=== PATIENT | male | born 1940 | race Caucasian/White ===

== ENCOUNTER 2018-01-16 14:39 | Inpatient (IN) | payer MEDICARE, OTHER ==
[~2018-01-16] VITALS: Ht 188 cm; Wt 86.9 kg
[2018-01-16] MEDS ORDERED: ETOMIDATE (2MG/ML) 20ML VIAL IV ONE (14:41)
[2018-01-16] MEDS ORDERED: SUCCINYLCHOLINE CHLORIDE 20 MG/ML 10ML VIAL IV ONE (14:41)
[2018-01-16] MEDS ORDERED: MIDAZOLAM DRIP 50 mg/50mL 50 ML IV ONE (14:43)
[2018-01-16] MEDS: MIDAZOLAM DRIP 50 mg/50mL 50 ML IV SCH (14:48)
[2018-01-16] MEDS ORDERED: NOREPINEPHRINE 16 MG/500ML KIT 500 ML IV ONE (15:13)
[2018-01-16] MEDS: NOREPINEPHRINE 16 MG/500ML KIT 500 ML IV SCH (15:29)
[2018-01-16] MEDS ORDERED: SODIUM BICARBONATE 8.4 % INJ 50ML VIAL IV ONE (15:45)
[2018-01-16] MEDS ORDERED: SODIUM CHLORIDE 0.9% 1,000 ML IV ONE (15:45)
[2018-01-16] MEDS ORDERED: SODIUM CHLORIDE 0.9% 1,000 ML IV SCH (17:15)
[2018-01-16] MEDS ORDERED: cefTRIAXone 1GM/10ml IVPUSH 10 ML IV ONE ×2 (17:15→17:45)
[2018-01-16] MEDS ORDERED: AZITHROMYCIN 500MG/ 250ML 250 ML IV ONE (17:45)
[2018-01-16 18:32] LABS: Basophils # (auto) 0 uL; Eosinophils # (auto) 0 uL; Hematocrit 39.8 % (41.0-53.0); Hemoglobin 13.4 g/dL (13.5-17.5); Lymphocytes # (auto) 0.7 uL; Lymphocytes % (auto) 3.1 % (10.0-50.0); Mean Corpuscular Hemoglobin 30.6 pg (28.0-32.0); Mean Corpuscular Hgb Conc. 33.6 g/dL (32.0-36.0); Mean Corpuscular Volume 91.1 fL (80.0-100.0); Monocytes # (auto) 2.2 uL; Monocytes % (auto) 9.8 % (0.0-12.0); Neutrophils % (auto) 87.1 % (37.0-80.0); Platelet Count (auto) 221 10^3/uL (140-450); Red Blood Cells 4.37 10^6/uL (4.5-5.90); Red Cell Distribution Width 15.8 % (11.8-14.3); White Blood Cell 22.9 10^3/uL (4.4-10.8)
[2018-01-16 18:56] LABS: Alanine Aminotransferase 48 U/L (16-61); Alkaline Phosphatase 55 U/L (45-117); Anion Gap 11 (5-15); Aspartate Aminotransferase 184 U/L (15-37); BUN/Creatinine Ratio 16.9; Bilirubin, Total 0.9 mg/dL (0.2-1.0); Blood Urea Nitrogen 39 mg/dL (7-18); Calcium 8.2 mg/dL (8.5-10.1); Carbon Dioxide 24 mmol/L (21-32); Chloride 101 mmol/L (98-107); GFR African American 35 mL/min; GFR Non-African American 29 mL/min; Glucose 111 mg/dL (74-106); Potassium 4.6 mmol/L (3.5-5.1); Sodium 136 mmol/L (136-145); Total Protein 6.2 g/dL (6.4-8.2)
[2018-01-16] MEDS ORDERED: ALBUTEROL SULF 2.5 MG/0.5ML(0.5%) NEB SOLN NEB PRN (19:15)
[2018-01-16] MEDS ORDERED: NITROGLYCERIN 0.4 MG SL TAB SL PRN (19:15)
[2018-01-16] MEDS ORDERED: MORPHINE SULFATE 4 MG/ML SYR/VIAL IV PRN ×2 (19:15)
[2018-01-16] MEDS ORDERED: LORazepam 2MG/ML-1ML VIAL IV PRN (19:15)
[2018-01-16] MEDS ORDERED: PROMETHAZINE HCL 25 MG/ML 1ML IV PRN (19:15)
[2018-01-16] MEDS ORDERED: PIPERACILLIN-TAZOB 3.375GM 100 ML IV ONE (19:15)
[2018-01-16] MEDS ORDERED: ENOXAPARIN SOD 60 MG/0.6 ML SYRINGE SC ONE (19:30)
[2018-01-16] MEDS ORDERED: PIPERACILLIN-TAZOB 2.25GM 50 ML IV ONE (19:45)
[2018-01-16 19:49] VITALS: BP 99/68
[2018-01-16] MEDS: SODIUM CHLORIDE 0.9% 1,000 ML IV SCH (20:04)
[2018-01-16 21:21] VITALS: BP 100/68
[2018-01-16 22:22] LABS: Urine Bacteria FEW /hpf (None Seen); Urine Blood 2+ /uL (Negative); Urine Mucus FEW (None Seen); Urine Specific Gravity 1.023 (1.001-1.035); Urine WBC 10 /hpf (0 - 3)
[2018-01-16 22:33] VITALS: BP 100/65
[2018-01-16] MEDS: LINEZOLID 600MG/300ML 300 ML IV SCH (23:29)
[2018-01-17] VITALS (42 sets, daily range): BP systolic 98–151; BP diastolic 51–95
[2018-01-17] MEDS: IPRATROPIUM BROM 0.5 MG/2.5ML INH SOL NEB SCH ×4 (00:57→18:30)
[2018-01-17] MEDS: ALBUTEROL SULF 2.5 MG/0.5ML(0.5%) NEB SOLN NEB SCH ×4 (00:57→18:30)
[2018-01-17] MEDS: PIPERACILLIN-TAZOB 2.25GM 50 ML IV SCH ×4 (03:00→21:14)
[2018-01-17 07:15] LABS: Basophils # (auto) 0 uL; Basophils % (auto) 0.1 % (0.0-2.0); Eosinophils # (auto) 0 uL; Hematocrit 38.8 % (41.0-53.0); Mean Corpuscular Hemoglobin 31.1 pg (28.0-32.0); Mean Corpuscular Hgb Conc. 33.4 g/dL (32.0-36.0); Mean Corpuscular Volume 93.1 fL (80.0-100.0); Monocytes # (auto) 1.8 uL; Monocytes % (auto) 10.5 % (0.0-12.0); Neutrophils # (auto) 14.2 uL; Neutrophils % (auto) 83.4 % (37.0-80.0); Nucleated Red Blood Cells % 0.1 %; Platelet Count (auto) 188 10^3/uL (140-450); Red Blood Cells 4.17 10^6/uL (4.5-5.90); Red Cell Distribution Width 15.7 % (11.8-14.3); White Blood Cell 17.1 10^3/uL (4.4-10.8)
[2018-01-17] MEDS: SODIUM CHLORIDE 0.9% 1,000 ML IV SCH ×3 (07:18→20:19)
[2018-01-17 08:15] LABS: Albumin 2.8 g/dL (3.4-5.0); BUN/Creatinine Ratio 18.7; Bilirubin, Total 0.6 mg/dL (0.2-1.0); Calcium 8.2 mg/dL (8.5-10.1); Potassium 4.9 mmol/L (3.5-5.1); Total Protein 6.3 g/dL (6.4-8.2)
[2018-01-17] MEDS ORDERED: ENOXAPARIN SOD 40 MG/0.4 ML SYRINGE SC SCH (10:00)
[2018-01-17] MEDS: LINEZOLID 600MG/300ML 300 ML IV SCH ×2 (10:00→22:58)
[2018-01-17] MEDS ORDERED: ENOXAPARIN SOD 30 MG/0.3 ML SYRINGE SC SCH (10:00)
[2018-01-17] MEDS: ENOXAPARIN SOD 60 MG/0.6 ML SYRINGE SC SCH (13:47)
[2018-01-17] MEDS: AZITHROMYCIN 500MG/ 250ML 250 ML IV SCH (14:28)
[2018-01-17] MEDS ORDERED: PANTOPRAZOLE 40 MG/10 ML VIAL IV ONE (15:00)
[2018-01-17] MEDS: MIDAZOLAM DRIP 50 mg/50mL 50 ML IV SCH ×2 (15:37→21:02)
[2018-01-17] MEDS: NOREPINEPHRINE 16 MG/500ML KIT 500 ML IV SCH (15:45)
[2018-01-18] VITALS (104 sets, daily range): BP systolic 92–171; BP diastolic 51–101
[2018-01-18] MEDS: IPRATROPIUM BROM 0.5 MG/2.5ML INH SOL NEB SCH ×4 (00:27→18:31)
[2018-01-18] MEDS: ALBUTEROL SULF 2.5 MG/0.5ML(0.5%) NEB SOLN NEB SCH ×4 (00:28→18:31)
[2018-01-18] MEDS: MIDAZOLAM DRIP 50 mg/50mL 50 ML IV SCH ×4 (01:49→21:26)
[2018-01-18] MEDS: PIPERACILLIN-TAZOB 2.25GM 50 ML IV SCH ×2 (03:24→09:00)
[2018-01-18] MEDS: SODIUM CHLORIDE 0.9% 1,000 ML IV SCH ×3 (03:28→19:04)
[2018-01-18 04:25] LABS: Basophils # (auto) 0 uL; Basophils % (auto) 0.3 % (0.0-2.0); Eosinophils # (auto) 0 uL; Hematocrit 35.5 % (41.0-53.0); Lymphocytes # (auto) 0.9 uL; Lymphocytes % (auto) 8.9 % (10.0-50.0); Mean Corpuscular Hemoglobin 31.3 pg (28.0-32.0); Mean Corpuscular Hgb Conc. 33.7 g/dL (32.0-36.0); Monocytes # (auto) 1.3 uL; Monocytes % (auto) 12.8 % (0.0-12.0); Neutrophils # (auto) 7.9 uL; Platelet Count (auto) 155 10^3/uL (140-450); Red Blood Cells 3.82 10^6/uL (4.5-5.90); Red Cell Distribution Width 16.1 % (11.8-14.3); White Blood Cell 10.1 10^3/uL (4.4-10.8)
[2018-01-18 04:48] LABS: Albumin 2.5 g/dL (3.4-5.0); BUN/Creatinine Ratio 26.1; Bilirubin, Total 0.5 mg/dL (0.2-1.0); Calcium 8.5 mg/dL (8.5-10.1); Potassium 4.2 mmol/L (3.5-5.1); Total Protein 5.7 g/dL (6.4-8.2)
[2018-01-18] MEDS: AZITHROMYCIN 500MG/ 250ML 250 ML IV SCH (09:44)
[2018-01-18] MEDS: LINEZOLID 600MG/300ML 300 ML IV SCH ×2 (09:44→23:38)
[2018-01-18] MEDS: ENOXAPARIN SOD 60 MG/0.6 ML SYRINGE SC SCH (09:44)
[2018-01-18] MEDS: PANTOPRAZOLE 40 MG/10 ML VIAL IV SCH (09:44)
[2018-01-18] MEDS: NOREPINEPHRINE 16 MG/500ML KIT 500 ML IV SCH (11:47)
[2018-01-18] MEDS: PIPERACILLIN-TAZOB 3.375GM 100 ML IV SCH ×2 (14:45→21:25)
[2018-01-19] VITALS (105 sets, daily range): BP systolic 113–182; BP diastolic 53–113
[2018-01-19] MEDS: ALBUTEROL SULF 2.5 MG/0.5ML(0.5%) NEB SOLN NEB SCH ×4 (00:25→18:49)
[2018-01-19] MEDS: IPRATROPIUM BROM 0.5 MG/2.5ML INH SOL NEB SCH ×4 (00:25→18:49)
[2018-01-19] MEDS: PIPERACILLIN-TAZOB 3.375GM 100 ML IV SCH ×4 (02:58→21:34)
[2018-01-19] MEDS: SODIUM CHLORIDE 0.9% 1,000 ML IV SCH ×3 (03:04→21:34)
[2018-01-19 04:21] LABS: Basophils # (auto) 0 uL; Basophils % (auto) 0.2 % (0.0-2.0); Eosinophils # (auto) 0 uL; Eosinophils % (auto) 0.4 % (0.0-7.0); Hematocrit 32.1 % (41.0-53.0); Hemoglobin 11.1 g/dL (13.5-17.5); Lymphocytes % (auto) 12.4 % (10.0-50.0); Mean Corpuscular Hemoglobin 31.6 pg (28.0-32.0); Mean Corpuscular Hgb Conc. 34.5 g/dL (32.0-36.0); Mean Corpuscular Volume 91.5 fL (80.0-100.0); Monocytes # (auto) 0.9 uL; Monocytes % (auto) 10.7 % (0.0-12.0); Neutrophils # (auto) 6.4 uL; Neutrophils % (auto) 76.3 % (37.0-80.0); Platelet Count (auto) 171 10^3/uL (140-450); Red Cell Distribution Width 15.3 % (11.8-14.3); White Blood Cell 8.4 10^3/uL (4.4-10.8)
[2018-01-19 04:28] LABS: Albumin 2.2 g/dL (3.4-5.0); Calcium 8.2 mg/dL (8.5-10.1); Potassium 4.1 mmol/L (3.5-5.1)
[2018-01-19 04:30] LABS: Bilirubin, Total 0.8 mg/dL (0.2-1.0); Total Protein 5.6 g/dL (6.4-8.2)
[2018-01-19] MEDS: NOREPINEPHRINE 8 MG/250ML KIT 250 ML IV SCH (07:15)
[2018-01-19] MEDS ORDERED: SODIUM CHLORIDE 0.9% 1,000 ML IV ONE (08:30)
[2018-01-19 08:51] LABS: Hepatitis B Surface Antibody Negative
[2018-01-19 09:51] LABS: Hepatitis B Surface Antigen Negative (Negative)
[2018-01-19] MEDS: PANTOPRAZOLE 40 MG/10 ML VIAL IV SCH (10:05)
[2018-01-19] MEDS: ENOXAPARIN SOD 40 MG/0.4 ML SYRINGE SC SCH (10:06)
[2018-01-19] MEDS: AZITHROMYCIN 500MG/ 250ML 250 ML IV SCH (10:07)
[2018-01-19] MEDS ORDERED: VANCOMYCIN PER PHARMACY 0 MG IV SCH (11:15)
[2018-01-19] MEDS ORDERED: FUROSEMIDE 20 MG/2 ML VIAL IV ONE (12:00)
[2018-01-19] MEDS: hydrALAZINE HCL 20 MG/ML VL IV PRN (12:23)
[2018-01-19] MEDS: VANCOMYCIN 1GM/250ML 250 ML IV SCH (12:35)
[2018-01-20] VITALS (103 sets, daily range): BP systolic 107–189; BP diastolic 51–119
[2018-01-20] MEDS: VANCOMYCIN 1GM/250ML 250 ML IV SCH ×2 (00:38→12:36)
[2018-01-20] MEDS: ALBUTEROL SULF 2.5 MG/0.5ML(0.5%) NEB SOLN NEB SCH ×4 (00:44→18:44)
[2018-01-20] MEDS: IPRATROPIUM BROM 0.5 MG/2.5ML INH SOL NEB SCH ×4 (00:44→18:44)
[2018-01-20] MEDS: MIDAZOLAM DRIP 50 mg/50mL 50 ML IV SCH ×2 (02:15→07:24)
[2018-01-20] MEDS: SODIUM CHLORIDE 0.9% 1,000 ML IV SCH ×4 (03:04→21:16)
[2018-01-20 03:46] LABS: Basophils # (auto) 0 uL; Basophils % (auto) 0.5 % (0.0-2.0); Eosinophils # (auto) 0.1 uL; Eosinophils % (auto) 0.7 % (0.0-7.0); Hematocrit 33.3 % (41.0-53.0); Hemoglobin 11.3 g/dL (13.5-17.5); Lymphocytes # (auto) 1.1 uL; Lymphocytes % (auto) 14.6 % (10.0-50.0); Mean Corpuscular Hemoglobin 31.1 pg (28.0-32.0); Mean Corpuscular Hgb Conc. 33.8 g/dL (32.0-36.0); Mean Corpuscular Volume 92.2 fL (80.0-100.0); Monocytes # (auto) 0.9 uL; Monocytes % (auto) 12.3 % (0.0-12.0); Neutrophils # (auto) 5.5 uL; Neutrophils % (auto) 71.9 % (37.0-80.0); Platelet Count (auto) 209 10^3/uL (140-450); Red Blood Cells 3.62 10^6/uL (4.5-5.90); Red Cell Distribution Width 15.4 % (11.8-14.3); White Blood Cell 7.6 10^3/uL (4.4-10.8)
[2018-01-20] MEDS: PIPERACILLIN-TAZOB 3.375GM 100 ML IV SCH ×2 (03:52→08:45)
[2018-01-20 04:08] LABS: Albumin 2.4 g/dL (3.4-5.0); BUN/Creatinine Ratio 21.4; Bilirubin, Total 0.7 mg/dL (0.2-1.0); Calcium 8.5 mg/dL (8.5-10.1); Potassium 3.9 mmol/L (3.5-5.1); Total Protein 5.7 g/dL (6.4-8.2)
[2018-01-20] MEDS: NOREPINEPHRINE 8 MG/250ML KIT 250 ML IV SCH (07:15)
[2018-01-20] MEDS: PANTOPRAZOLE 40 MG/10 ML VIAL IV SCH (10:43)
[2018-01-20] MEDS: ENOXAPARIN SOD 40 MG/0.4 ML SYRINGE SC SCH (10:43)
[2018-01-20] MEDS: CLINDAMYCIN 600MG IV 50 ML IV SCH ×2 (10:48→16:51)
[2018-01-20] MEDS: hydrALAZINE HCL 20 MG/ML VL IV PRN ×2 (10:55→23:54)
[2018-01-21] VITALS (107 sets, daily range): BP systolic 94–175; BP diastolic 45–107
[2018-01-21] MEDS: VANCOMYCIN 1GM/250ML 250 ML IV SCH (00:16)
[2018-01-21] MEDS: IPRATROPIUM BROM 0.5 MG/2.5ML INH SOL NEB SCH ×4 (00:26→18:09)
[2018-01-21] MEDS: ALBUTEROL SULF 2.5 MG/0.5ML(0.5%) NEB SOLN NEB SCH ×4 (00:26→18:09)
[2018-01-21] MEDS: MIDAZOLAM DRIP 50 mg/50mL 50 ML IV SCH ×3 (01:17→14:47)
[2018-01-21] MEDS: CLINDAMYCIN 600MG IV 50 ML IV SCH ×3 (01:26→17:30)
[2018-01-21 03:58] LABS: Basophils # (auto) 0.3 uL; Basophils % (auto) 4.4 % (0.0-2.0); Eosinophils # (auto) 0.1 uL; Eosinophils % (auto) 1.3 % (0.0-7.0); Hematocrit 34.3 % (41.0-53.0); Hemoglobin 11.4 g/dL (13.5-17.5); Lymphocytes # (auto) 0.9 uL; Lymphocytes % (auto) 14.2 % (10.0-50.0); Mean Corpuscular Hemoglobin 31.2 pg (28.0-32.0); Mean Corpuscular Hgb Conc. 33.2 g/dL (32.0-36.0); Mean Corpuscular Volume 94.1 fL (80.0-100.0); Monocytes # (auto) 0.9 uL; Monocytes % (auto) 13.9 % (0.0-12.0); Neutrophils # (auto) 4.4 uL; Neutrophils % (auto) 66.2 % (37.0-80.0); Nucleated Red Blood Cells % 0.1 %; Platelet Count (auto) 241 10^3/uL (140-450); Red Blood Cells 3.64 10^6/uL (4.5-5.90); Red Cell Distribution Width 15.9 % (11.8-14.3); White Blood Cell 6.6 10^3/uL (4.4-10.8)
[2018-01-21 04:11] LABS: Albumin 2.4 g/dL (3.4-5.0); BUN/Creatinine Ratio 28.4; Bilirubin, Total 0.6 mg/dL (0.2-1.0); Calcium 8.8 mg/dL (8.5-10.1); Potassium 3.9 mmol/L (3.5-5.1); Total Protein 5.8 g/dL (6.4-8.2)
[2018-01-21] MEDS: NOREPINEPHRINE 8 MG/250ML KIT 250 ML IV SCH (07:15)
[2018-01-21] MEDS ORDERED: LISI10TA6 PO (09:49)
[2018-01-21] MEDS ORDERED: ARIP15TA6 PO (09:49)
[2018-01-21] MEDS ORDERED: TRAZ50TA2 PO (09:49)
[2018-01-21] MEDS ORDERED: QUET100T38 PO (09:49)
[2018-01-21] MEDS ORDERED: OLAN5TAB26 PO (09:49)
[2018-01-21] MEDS ORDERED: RISP1TAB60 PO (09:49)
[2018-01-21] MEDS ORDERED: DIVA250T61 PO (09:49)
[2018-01-21] MEDS: PANTOPRAZOLE 40 MG/10 ML VIAL IV SCH (10:18)
[2018-01-21] MEDS: ENOXAPARIN SOD 40 MG/0.4 ML SYRINGE SC SCH (10:18)
[2018-01-21] MEDS: SODIUM CHLORIDE 0.9% 1,000 ML IV SCH (10:22)
[2018-01-21] MEDS: hydrALAZINE HCL 20 MG/ML VL IV PRN (12:27)
[2018-01-21] MEDS ORDERED: LEVOFLOXACIN 500MG 100 ML IV ONE (14:00)
[2018-01-21] MEDS ORDERED: LACTULOSE 20Gm/30ML SOLN PO ONE (14:00)
[2018-01-21] MEDS ORDERED: FUROSEMIDE 40 MG/4 ML VIAL IV ONE (14:00)
[2018-01-21] MEDS ORDERED: DOCUSATE ORAL LIQUID 100 MG/10 ML UD GT ONE (14:00)
[2018-01-21] MEDS ORDERED: VALPROIC ACID 250 MG/5 ML ORAL SOLN GT SCH (14:06)
[2018-01-21] MEDS: VALPROIC ACID 250 MG/5 ML ORAL SOLN GT SCH (22:03)
[2018-01-22] VITALS (93 sets, daily range): BP systolic 90–180; BP diastolic 51–120
[2018-01-22] MEDS: MIDAZOLAM DRIP 50 mg/50mL 50 ML IV SCH ×2 (00:04→15:25)
[2018-01-22] MEDS: CLINDAMYCIN 600MG IV 50 ML IV SCH ×3 (01:14→18:25)
[2018-01-22] MEDS: MORPHINE SULFATE 4 MG/ML SYR/VIAL IV PRN (01:15)
[2018-01-22 04:26] LABS: Basophils # (auto) 0 uL; Basophils % (auto) 0.5 % (0.0-2.0); Eosinophils # (auto) 0.1 uL; Eosinophils % (auto) 2.2 % (0.0-7.0); Hematocrit 31.8 % (41.0-53.0); Hemoglobin 10.7 g/dL (13.5-17.5); Lymphocytes # (auto) 1.3 uL; Lymphocytes % (auto) 21.1 % (10.0-50.0); Mean Corpuscular Hemoglobin 31.3 pg (28.0-32.0); Mean Corpuscular Hgb Conc. 33.7 g/dL (32.0-36.0); Mean Corpuscular Volume 92.8 fL (80.0-100.0); Monocytes # (auto) 0.8 uL; Monocytes % (auto) 12.6 % (0.0-12.0); Neutrophils # (auto) 3.9 uL; Neutrophils % (auto) 63.6 % (37.0-80.0); Nucleated Red Blood Cells % 0.1 %; Platelet Count (auto) 250 10^3/uL (140-450); Red Blood Cells 3.42 10^6/uL (4.5-5.90); Red Cell Distribution Width 15.1 % (11.8-14.3); White Blood Cell 6.1 10^3/uL (4.4-10.8)
[2018-01-22 04:41] LABS: Albumin 2.2 g/dL (3.4-5.0); BUN/Creatinine Ratio 27.8; Calcium 8.8 mg/dL (8.5-10.1); Potassium 3.6 mmol/L (3.5-5.1)
[2018-01-22 04:44] LABS: Bilirubin, Total 0.5 mg/dL (0.2-1.0); Total Protein 5.5 g/dL (6.4-8.2)
[2018-01-22] MEDS: ALBUTEROL SULF 2.5 MG/0.5ML(0.5%) NEB SOLN NEB SCH ×5 (06:28→23:12)
[2018-01-22] MEDS: IPRATROPIUM BROM 0.5 MG/2.5ML INH SOL NEB SCH ×5 (06:28→23:12)
[2018-01-22] MEDS: hydrALAZINE HCL 20 MG/ML VL IV PRN ×2 (06:51→15:57)
[2018-01-22] MEDS: ENOXAPARIN SOD 40 MG/0.4 ML SYRINGE SC SCH (11:20)
[2018-01-22] MEDS: VALPROIC ACID 250 MG/5 ML ORAL SOLN GT SCH ×2 (11:20→22:21)
[2018-01-22] MEDS: PANTOPRAZOLE 40 MG/10 ML VIAL IV SCH (11:20)
[2018-01-22] MEDS: LEVOFLOXACIN 500MG 100 ML IV SCH (11:21)
[2018-01-22] MEDS: ENOXAPARIN SOD 80 MG/0.8ML SYRINGE SC SCH (22:21)
[2018-01-23] VITALS (45 sets, daily range): BP systolic 125–178; BP diastolic 72–115
[2018-01-23] MEDS: CLINDAMYCIN 600MG IV 50 ML IV SCH ×3 (01:20→17:38)
[2018-01-23 03:42] LABS: Hematocrit 33.5 % (41.0-53.0); Hemoglobin 11.4 g/dL (13.5-17.5); Mean Corpuscular Hemoglobin 31.2 pg (28.0-32.0); Mean Corpuscular Volume 91.9 fL (80.0-100.0); Platelet Count (auto) 300 10^3/uL (140-450); Red Blood Cells 3.64 10^6/uL (4.5-5.90); Red Cell Distribution Width 15.2 % (11.8-14.3); White Blood Cell 7.8 10^3/uL (4.4-10.8)
[2018-01-23 04:01] LABS: BUN/Creatinine Ratio 28.6; Calcium 9.2 mg/dL (8.5-10.1); Potassium 3.6 mmol/L (3.5-5.1)
[2018-01-23 04:13] LABS: Band Neutrophils % (manual) 0; Basophils % (manual) 0 (0.0-2.0); Blast Cells 0; Eosinophils % (manual) 0 (0-7); Promyelocytes % 0; Reactive Lymphocytes 0
[2018-01-23] MEDS: MORPHINE SULFATE 4 MG/ML SYR/VIAL IV PRN ×2 (04:42→17:40)
[2018-01-23 05:02] LABS: Lymphocytes % (manual) 15 (10.0-50.0); Metamyelocytes % 3; Monocytes % (manual) 11 (0-12); Myelocytes % 2
[2018-01-23] MEDS: IPRATROPIUM BROM 0.5 MG/2.5ML INH SOL NEB SCH ×3 (05:57→19:10)
[2018-01-23] MEDS: ALBUTEROL SULF 2.5 MG/0.5ML(0.5%) NEB SOLN NEB SCH ×3 (05:57→19:10)
[2018-01-23] MEDS: LEVOFLOXACIN 500MG 100 ML IV SCH (09:43)
[2018-01-23] MEDS: VALPROIC ACID 250 MG/5 ML ORAL SOLN GT SCH ×2 (09:43→22:14)
[2018-01-23] MEDS: PANTOPRAZOLE 40 MG/10 ML VIAL IV SCH (09:44)
[2018-01-23] MEDS: FUROSEMIDE 20 MG/2 ML VIAL IV SCH (09:44)
[2018-01-23] MEDS: amLODIPine BESYLATE 5 MG TAB PO SCH (09:44)
[2018-01-23] MEDS: ENOXAPARIN SOD 80 MG/0.8ML SYRINGE SC SCH ×2 (09:45→22:14)
[2018-01-23] MEDS: hydrALAZINE HCL 20 MG/ML VL IV PRN ×2 (11:38→23:47)
[2018-01-23] MEDS ORDERED: POTASSIUM CHL 10% (20 MEQ/15ML) 15ml ORAL SOLN GT ONE (11:45)
[2018-01-23] MEDS ORDERED: FUROSEMIDE 20 MG/2 ML VIAL IV ONE (11:45)
[2018-01-23] MEDS: MIDAZOLAM DRIP 50 mg/50mL 50 ML IV SCH (15:37)
[2018-01-24] VITALS (50 sets, daily range): BP systolic 128–176; BP diastolic 68–118
[2018-01-24] MEDS: ALBUTEROL SULF 2.5 MG/0.5ML(0.5%) NEB SOLN NEB SCH ×4 (00:18→18:33)
[2018-01-24] MEDS: IPRATROPIUM BROM 0.5 MG/2.5ML INH SOL NEB SCH ×4 (00:18→18:33)
[2018-01-24] MEDS: CLINDAMYCIN 600MG IV 50 ML IV SCH ×3 (01:00→16:52)
[2018-01-24 04:08] LABS: Hematocrit 37.5 % (41.0-53.0); Hemoglobin 12.8 g/dL (13.5-17.5); Mean Corpuscular Hemoglobin 31.3 pg (28.0-32.0); Mean Corpuscular Hgb Conc. 34.2 g/dL (32.0-36.0); Mean Corpuscular Volume 91.6 fL (80.0-100.0); Platelet Count (auto) 352 10^3/uL (140-450); Red Blood Cells 4.09 10^6/uL (4.5-5.90)
[2018-01-24 04:09] LABS: Basophils % (manual) 0 (0.0-2.0); Blast Cells 0; Eosinophils % (manual) 0 (0-7); Metamyelocytes % 0; Myelocytes % 0; Promyelocytes % 0; Reactive Lymphocytes 0
[2018-01-24 04:28] LABS: BUN/Creatinine Ratio 30.8; Calcium 9.5 mg/dL (8.5-10.1); Potassium 3.4 mmol/L (3.5-5.1)
[2018-01-24 04:59] LABS: Band Neutrophils % (manual) 2; Lymphocytes % (manual) 18 (10.0-50.0); Monocytes % (manual) 5 (0-12)
[2018-01-24] MEDS: hydrALAZINE HCL 20 MG/ML VL IV PRN (05:35)
[2018-01-24] MEDS: PANTOPRAZOLE 40 MG/10 ML VIAL IV SCH (10:23)
[2018-01-24] MEDS: LEVOFLOXACIN 500MG 100 ML IV SCH (10:23)
[2018-01-24] MEDS: ENOXAPARIN SOD 80 MG/0.8ML SYRINGE SC SCH ×2 (10:24→21:52)
[2018-01-24] MEDS: FUROSEMIDE 20 MG/2 ML VIAL IV SCH (10:24)
[2018-01-24] MEDS: amLODIPine BESYLATE 5 MG TAB PO SCH (10:24)
[2018-01-24] MEDS: VALPROIC ACID 250 MG/5 ML ORAL SOLN GT SCH ×2 (10:25→21:52)
[2018-01-25] VITALS (74 sets, daily range): BP systolic 104–186; BP diastolic 47–141
[2018-01-25] MEDS: ALBUTEROL SULF 2.5 MG/0.5ML(0.5%) NEB SOLN NEB SCH ×4 (00:11→18:37)
[2018-01-25] MEDS: IPRATROPIUM BROM 0.5 MG/2.5ML INH SOL NEB SCH ×4 (00:11→18:37)
[2018-01-25] MEDS: CLINDAMYCIN 600MG IV 50 ML IV SCH ×3 (00:57→17:26)
[2018-01-25] MEDS: MORPHINE SULFATE 4 MG/ML SYR/VIAL IV PRN ×2 (02:55→08:48)
[2018-01-25 06:11] LABS: Basophils # (auto) 0.1 uL; Basophils % (auto) 0.7 % (0.0-2.0); Eosinophils # (auto) 0 uL; Hematocrit 40.1 % (41.0-53.0); Hemoglobin 13.4 g/dL (13.5-17.5); Lymphocytes # (auto) 1.1 uL; Lymphocytes % (auto) 9.8 % (10.0-50.0); Mean Corpuscular Hemoglobin 30.7 pg (28.0-32.0); Mean Corpuscular Hgb Conc. 33.4 g/dL (32.0-36.0); Mean Corpuscular Volume 91.9 fL (80.0-100.0); Monocytes # (auto) 1.2 uL; Monocytes % (auto) 11.2 % (0.0-12.0); Neutrophils # (auto) 8.6 uL; Neutrophils % (auto) 78.3 % (37.0-80.0); Nucleated Red Blood Cells % 0.1 %; Platelet Count (auto) 399 10^3/uL (140-450); Red Blood Cells 4.37 10^6/uL (4.5-5.90); Red Cell Distribution Width 15.2 % (11.8-14.3)
[2018-01-25 06:37] LABS: BUN/Creatinine Ratio 29.8; Calcium 9.7 mg/dL (8.5-10.1); Potassium 3.5 mmol/L (3.5-5.1)
[2018-01-25] MEDS: hydrALAZINE HCL 20 MG/ML VL IV PRN ×2 (08:22→18:25)
[2018-01-25] MEDS ORDERED: METOPROLOL TARTRATE 1MG/1ML-5ML VIAL IV ONE ×2 (08:56→09:00)
[2018-01-25] MEDS ORDERED: METOPROLOL TARTRATE 1MG/1ML-5ML VIAL IV PRN (09:30)
[2018-01-25] MEDS: METOPROLOL TARTRATE 25 MG TAB PO SCH ×2 (10:00→21:37)
[2018-01-25] MEDS: LEVOFLOXACIN 500MG 100 ML IV SCH (10:07)
[2018-01-25] MEDS: VALPROIC ACID 250 MG/5 ML ORAL SOLN GT SCH ×2 (10:07→21:36)
[2018-01-25] MEDS: PANTOPRAZOLE 40 MG/10 ML VIAL IV SCH (10:07)
[2018-01-25] MEDS: FUROSEMIDE 40 MG TAB PO SCH (10:08)
[2018-01-25] MEDS: ENOXAPARIN SOD 80 MG/0.8ML SYRINGE SC SCH ×2 (10:08→21:36)
[2018-01-25] MEDS: amLODIPine BESYLATE 5 MG TAB PO SCH (10:08)
[2018-01-26] VITALS (42 sets, daily range): BP systolic 104–160; BP diastolic 54–112
[2018-01-26] MEDS: IPRATROPIUM BROM 0.5 MG/2.5ML INH SOL NEB SCH ×4 (00:28→18:18)
[2018-01-26] MEDS: ALBUTEROL SULF 2.5 MG/0.5ML(0.5%) NEB SOLN NEB SCH ×4 (00:28→18:18)
[2018-01-26] MEDS: CLINDAMYCIN 600MG IV 50 ML IV SCH ×3 (01:02→16:50)
[2018-01-26 03:54] LABS: Basophils # (auto) 0 uL; Basophils % (auto) 0.3 % (0.0-2.0); Eosinophils # (auto) 0 uL; Eosinophils % (auto) 0.1 % (0.0-7.0); Hematocrit 38.8 % (41.0-53.0); Hemoglobin 13.5 g/dL (13.5-17.5); Lymphocytes # (auto) 1.1 uL; Lymphocytes % (auto) 10.9 % (10.0-50.0); Mean Corpuscular Hemoglobin 31.7 pg (28.0-32.0); Mean Corpuscular Hgb Conc. 34.8 g/dL (32.0-36.0); Monocytes # (auto) 1.2 uL; Monocytes % (auto) 11.5 % (0.0-12.0); Neutrophils % (auto) 77.2 % (37.0-80.0); Platelet Count (auto) 412 10^3/uL (140-450); Red Blood Cells 4.26 10^6/uL (4.5-5.90); Red Cell Distribution Width 15.2 % (11.8-14.3); White Blood Cell 10.4 10^3/uL (4.4-10.8)
[2018-01-26 04:04] LABS: Albumin 2.7 g/dL (3.4-5.0); BUN/Creatinine Ratio 32.1; Bilirubin, Total 0.4 mg/dL (0.2-1.0); Calcium 9.5 mg/dL (8.5-10.1); Potassium 3.4 mmol/L (3.5-5.1); Total Protein 5.8 g/dL (6.4-8.2)
[2018-01-26] MEDS: VALPROIC ACID 250 MG/5 ML ORAL SOLN GT SCH ×2 (10:05→21:27)
[2018-01-26] MEDS: LEVOFLOXACIN 500MG 100 ML IV SCH (10:05)
[2018-01-26] MEDS: METOPROLOL TARTRATE 50 MG TAB PO SCH ×2 (10:06→21:28)
[2018-01-26] MEDS: AMIODARONE HCL 200 MG TAB PO SCH ×2 (10:06→21:27)
[2018-01-26] MEDS: FUROSEMIDE 40 MG TAB PO SCH (10:06)
[2018-01-26] MEDS: amLODIPine BESYLATE 5 MG TAB PO SCH (10:07)
[2018-01-26] MEDS: ENOXAPARIN SOD 80 MG/0.8ML SYRINGE SC SCH ×2 (10:07→21:27)
[2018-01-26] MEDS: PANTOPRAZOLE 40 MG/10 ML VIAL IV SCH (10:07)
[2018-01-26] MEDS ORDERED: POTASSIUM CHL 10% (20 MEQ/15ML) 15ml ORAL SOLN GT ONE (10:45)
[2018-01-26] MEDS: Isosource 1.5 Cal 1 Liter GT SCH (16:30)
[2018-01-27] VITALS (30 sets, daily range): BP systolic 97–161; BP diastolic 48–103
[2018-01-27] MEDS: IPRATROPIUM BROM 0.5 MG/2.5ML INH SOL NEB SCH ×4 (00:10→19:07)
[2018-01-27] MEDS: ALBUTEROL SULF 2.5 MG/0.5ML(0.5%) NEB SOLN NEB SCH ×4 (00:10→19:07)
[2018-01-27] MEDS: CLINDAMYCIN 600MG IV 50 ML IV SCH ×3 (01:36→17:28)
[2018-01-27 04:39] LABS: BUN/Creatinine Ratio 37.3; Calcium 9.8 mg/dL (8.5-10.1); Potassium 3.6 mmol/L (3.5-5.1)
[2018-01-27] MEDS: PANTOPRAZOLE 40 MG/10 ML VIAL IV SCH (10:00)
[2018-01-27] MEDS: VALPROIC ACID 250 MG/5 ML ORAL SOLN GT SCH ×2 (10:00→22:00)
[2018-01-27] MEDS: LEVOFLOXACIN 500MG 100 ML IV SCH (10:00)
[2018-01-27] MEDS: FUROSEMIDE 40 MG TAB PO SCH (10:00)
[2018-01-27] MEDS: ENOXAPARIN SOD 80 MG/0.8ML SYRINGE SC SCH ×2 (10:00→22:00)
[2018-01-27] MEDS: AMIODARONE HCL 200 MG TAB PO SCH ×2 (10:01→22:00)
[2018-01-27] MEDS: amLODIPine BESYLATE 5 MG TAB PO SCH (10:01)
[2018-01-27] MEDS: METOPROLOL TARTRATE 50 MG TAB PO SCH ×2 (10:01→22:00)
[2018-01-27] MEDS ORDERED: MORPHINE SULFATE 4 MG/ML SYR/VIAL IV PRN (12:45)
[2018-01-27] MEDS: FREE WATER GT SCH (17:53)
[2018-01-27] MEDS: Isosource 1.5 Cal 1 Liter GT SCH (17:54)
[2018-01-28] VITALS (50 sets, daily range): BP systolic 98–158; BP diastolic 49–92
[2018-01-28] MEDS: ALBUTEROL SULF 2.5 MG/0.5ML(0.5%) NEB SOLN NEB SCH ×4 (00:31→18:36)
[2018-01-28] MEDS: IPRATROPIUM BROM 0.5 MG/2.5ML INH SOL NEB SCH ×4 (00:32→18:36)
[2018-01-28] MEDS: CLINDAMYCIN 600MG IV 50 ML IV SCH ×2 (00:45→09:31)
[2018-01-28 03:53] LABS: Calcium 9.5 mg/dL (8.5-10.1); Potassium 3.8 mmol/L (3.5-5.1)
[2018-01-28 03:55] LABS: BUN/Creatinine Ratio 40.2
[2018-01-28] MEDS: FREE WATER GT SCH ×4 (06:00→17:09)
[2018-01-28] MEDS: PANTOPRAZOLE 40 MG/10 ML VIAL IV SCH (09:30)
[2018-01-28] MEDS: AMIODARONE HCL 200 MG TAB PO SCH ×2 (09:31→22:50)
[2018-01-28] MEDS: amLODIPine BESYLATE 5 MG TAB PO SCH (09:31)
[2018-01-28] MEDS: VALPROIC ACID 250 MG/5 ML ORAL SOLN GT SCH ×2 (09:31→22:59)
[2018-01-28] MEDS: ENOXAPARIN SOD 80 MG/0.8ML SYRINGE SC SCH ×2 (09:31→22:50)
[2018-01-28] MEDS: METOPROLOL TARTRATE 50 MG TAB PO SCH ×2 (09:32→22:00)
[2018-01-28] MEDS ORDERED: FUROSEMIDE 40 MG/4 ML VIAL IV ONE (11:00)
[2018-01-28] MEDS: LEVOFLOXACIN 500MG 100 ML IV SCH (11:15)
[2018-01-28] MEDS ORDERED: VANCOMYCIN PER PHARMACY 0 MG IV SCH (13:15)
[2018-01-28] MEDS ORDERED: LEVOFLOXACIN 250MG 50 ML IV ONE (15:00)
[2018-01-28] MEDS: VANCOMYCIN 1GM/250ML 250 ML IV SCH (15:13)
[2018-01-28] MEDS: LACTULOSE 20Gm/30ML SOLN PO PRN (20:27)
[2018-01-29] VITALS (10 sets, daily range): BP systolic 99–144; BP diastolic 51–107
[2018-01-29] MEDS: ALBUTEROL SULF 2.5 MG/0.5ML(0.5%) NEB SOLN NEB SCH ×4 (00:33→18:44)
[2018-01-29] MEDS: IPRATROPIUM BROM 0.5 MG/2.5ML INH SOL NEB SCH ×4 (00:33→18:44)
[2018-01-29 05:20] LABS: Basophils # (auto) 0 uL; Basophils % (auto) 0.1 % (0.0-2.0); Eosinophils # (auto) 0 uL; Hematocrit 37.6 % (41.0-53.0); Hemoglobin 12.2 g/dL (13.5-17.5); Lymphocytes # (auto) 1.7 uL; Lymphocytes % (auto) 7.1 % (10.0-50.0); Mean Corpuscular Hemoglobin 30.7 pg (28.0-32.0); Mean Corpuscular Hgb Conc. 32.6 g/dL (32.0-36.0); Mean Corpuscular Volume 94.2 fL (80.0-100.0); Monocytes # (auto) 1.3 uL; Monocytes % (auto) 5.7 % (0.0-12.0); Neutrophils # (auto) 20.4 uL; Neutrophils % (auto) 87.1 % (37.0-80.0); Nucleated Red Blood Cells % 0.1 %; Platelet Count (auto) 363 10^3/uL (140-450); Red Blood Cells 3.99 10^6/uL (4.5-5.90); Red Cell Distribution Width 15.6 % (11.8-14.3); White Blood Cell 23.4 10^3/uL (4.4-10.8)
[2018-01-29 05:45] LABS: Albumin 2.3 g/dL (3.4-5.0); BUN/Creatinine Ratio 36.9; Bilirubin, Total 0.6 mg/dL (0.2-1.0); Calcium 9.8 mg/dL (8.5-10.1); Potassium 3.8 mmol/L (3.5-5.1); Total Protein 6.2 g/dL (6.4-8.2)
[2018-01-29] MEDS: FREE WATER GT SCH ×5 (06:00→23:33)
[2018-01-29] MEDS: VANCOMYCIN 1GM/250ML 250 ML IV SCH (09:30)
[2018-01-29] MEDS ORDERED: LEVOFLOXACIN 750MG 150 ML IV SCH (10:00)
[2018-01-29] MEDS: ENOXAPARIN SOD 80 MG/0.8ML SYRINGE SC SCH ×2 (10:32→21:48)
[2018-01-29] MEDS: PANTOPRAZOLE 40 MG/10 ML VIAL IV SCH (10:32)
[2018-01-29] MEDS: METOPROLOL TARTRATE 50 MG TAB PO SCH (10:33)
[2018-01-29] MEDS: AMIODARONE HCL 200 MG TAB PO SCH ×2 (10:33→21:48)
[2018-01-29] MEDS: VALPROIC ACID 250 MG/5 ML ORAL SOLN GT SCH ×2 (13:47→21:47)
[2018-01-29] MEDS: D5W 5% 1,000 ML IV SCH (13:47)
[2018-01-29] MEDS: PIPERACILLIN-TAZOB 3.375GM 100 ML IV SCH ×2 (13:56→21:48)
[2018-01-29] MEDS: METOPROLOL TARTRATE 25 MG TAB PO SCH (22:00)
[2018-01-30] VITALS (7 sets, daily range): BP systolic 111–152; BP diastolic 61–97
[2018-01-30] MEDS: LACTULOSE 20Gm/30ML SOLN PO PRN (00:20)
[2018-01-30] MEDS: ALBUTEROL SULF 2.5 MG/0.5ML(0.5%) NEB SOLN NEB SCH ×4 (00:38→18:51)
[2018-01-30] MEDS: IPRATROPIUM BROM 0.5 MG/2.5ML INH SOL NEB SCH ×4 (00:38→18:51)
[2018-01-30 01:01] LABS: Urine Bacteria NONE SEEN /hpf (None Seen); Urine Blood 1+ /uL (Negative); Urine Hyaline Cast FEW /lpf (0 - 2); Urine Mucus FEW (None Seen); Urine Specific Gravity 1.024 (1.001-1.035); Urine WBC 2 /hpf (0 - 3)
[2018-01-30] MEDS: D5W 5% 1,000 ML IV SCH ×2 (02:20→15:00)
[2018-01-30] MEDS: VANCOMYCIN 1GM/250ML 250 ML IV SCH ×2 (02:48→21:09)
[2018-01-30] MEDS: Isosource 1.5 Cal 1 Liter GT SCH (02:52)
[2018-01-30 03:59] LABS: Calcium 9.8 mg/dL (8.5-10.1); Potassium 3.6 mmol/L (3.5-5.1)
[2018-01-30 04:00] LABS: Basophils # (auto) 0 uL; Basophils % (auto) 0.3 % (0.0-2.0); Eosinophils # (auto) 0 uL; Eosinophils % (auto) 0.1 % (0.0-7.0); Hematocrit 35.1 % (41.0-53.0); Hemoglobin 11.5 g/dL (13.5-17.5); Lymphocytes # (auto) 1.1 uL; Lymphocytes % (auto) 6.6 % (10.0-50.0); Mean Corpuscular Hemoglobin 30.7 pg (28.0-32.0); Mean Corpuscular Hgb Conc. 32.7 g/dL (32.0-36.0); Mean Corpuscular Volume 94.1 fL (80.0-100.0); Neutrophils # (auto) 14.5 uL; Platelet Count (auto) 326 10^3/uL (140-450); Red Blood Cells 3.73 10^6/uL (4.5-5.90); Red Cell Distribution Width 15.2 % (11.8-14.3); White Blood Cell 16.6 10^3/uL (4.4-10.8)
[2018-01-30 04:01] LABS: Bilirubin, Total 0.6 mg/dL (0.2-1.0); Total Protein 5.9 g/dL (6.4-8.2)
[2018-01-30] MEDS: PIPERACILLIN-TAZOB 3.375GM 100 ML IV SCH ×3 (05:31→22:01)
[2018-01-30] MEDS: FREE WATER GT SCH ×3 (05:31→17:55)
[2018-01-30] MEDS: ENOXAPARIN SOD 80 MG/0.8ML SYRINGE SC SCH ×2 (10:12→22:03)
[2018-01-30] MEDS: PANTOPRAZOLE 40 MG/10 ML VIAL IV SCH (10:12)
[2018-01-30] MEDS: METOPROLOL TARTRATE 25 MG TAB PO SCH ×2 (10:13→22:11)
[2018-01-30] MEDS: VALPROIC ACID 250 MG/5 ML ORAL SOLN GT SCH ×2 (10:13→22:11)
[2018-01-30] MEDS: AMIODARONE HCL 200 MG TAB PO SCH ×2 (10:13→22:00)
[2018-01-30] MEDS ORDERED: PROMETHAZINE HCL 25 MG/ML 1ML IV PRN (10:45)
[2018-01-30] MEDS ORDERED: MORPHINE SULFATE 4 MG/ML SYR/VIAL IV PRN (10:45)
[2018-01-30] MEDS ORDERED: ALBUTEROL SULF 2.5 MG/0.5ML(0.5%) NEB SOLN NEB PRN (10:45)
[2018-01-30] MEDS ORDERED: NITROGLYCERIN 0.4 MG SL TAB SL PRN (10:45)
[2018-01-30] MEDS ORDERED: LACTULOSE 20Gm/30ML SOLN PO PRN (10:45)
[2018-01-30] MEDS ORDERED: MORPHINE SULFATE 8mg/ml INJ SDV IV PRN (16:00)
[2018-01-31] MEDS: IPRATROPIUM BROM 0.5 MG/2.5ML INH SOL NEB SCH ×4 (00:49→18:35)
[2018-01-31] MEDS: ALBUTEROL SULF 2.5 MG/0.5ML(0.5%) NEB SOLN NEB SCH ×4 (00:49→18:35)
[2018-01-31 04:00] VITALS: BP 119/69
[2018-01-31 05:07] LABS: Hematocrit 34.9 % (41.0-53.0); Hemoglobin 11.5 g/dL (13.5-17.5); Mean Corpuscular Hemoglobin 31.2 pg (28.0-32.0); Mean Corpuscular Volume 94.5 fL (80.0-100.0); Platelet Count (auto) 336 10^3/uL (140-450); Red Blood Cells 3.69 10^6/uL (4.5-5.90); Red Cell Distribution Width 14.8 % (11.8-14.3)
[2018-01-31 05:12] LABS: Band Neutrophils % (manual) 0; Basophils % (manual) 0 (0.0-2.0); Blast Cells 0; Eosinophils % (manual) 0 (0-7); Metamyelocytes % 0; Myelocytes % 0; Promyelocytes % 0; Reactive Lymphocytes 0
[2018-01-31] MEDS: D5W 5% 1,000 ML IV SCH (05:17)
[2018-01-31 05:27] LABS: Albumin 1.9 g/dL (3.4-5.0); BUN/Creatinine Ratio 50.5; Bilirubin, Total 0.4 mg/dL (0.2-1.0); Calcium 9.4 mg/dL (8.5-10.1); Potassium 3.6 mmol/L (3.5-5.1); Total Protein 5.6 g/dL (6.4-8.2)
[2018-01-31 06:10] LABS: Lymphocytes % (manual) 6 (10.0-50.0); Monocytes % (manual) 3 (0-12)
[2018-01-31] MEDS: FREE WATER GT SCH ×4 (06:35→17:56)
[2018-01-31] MEDS: PIPERACILLIN-TAZOB 3.375GM 100 ML IV SCH ×3 (06:36→21:30)
[2018-01-31 08:00] VITALS: BP 142/87
[2018-01-31] MEDS: VALPROIC ACID 250 MG/5 ML ORAL SOLN GT SCH ×2 (10:02→21:31)
[2018-01-31] MEDS: AMIODARONE HCL 200 MG TAB PO SCH ×2 (10:02→21:32)
[2018-01-31] MEDS: ENOXAPARIN SOD 80 MG/0.8ML SYRINGE SC SCH ×2 (10:02→21:32)
[2018-01-31] MEDS: PANTOPRAZOLE 40 MG/10 ML VIAL IV SCH (10:02)
[2018-01-31] MEDS: METOPROLOL TARTRATE 25 MG TAB PO SCH ×2 (10:06→21:32)
[2018-01-31 11:51] VITALS: BP 123/71
[2018-01-31] MEDS: VANCOMYCIN 1GM/250ML 250 ML IV SCH (15:00)
[2018-01-31 16:06] VITALS: BP 134/67
[2018-01-31 19:37] VITALS: BP 112/58
[2018-01-31 22:48] VITALS: BP 111/67
[2018-02-01] MEDS: FREE WATER GT SCH ×4 (00:06→18:00)
[2018-02-01] MEDS: D5W 5% 1,000 ML IV SCH ×3 (00:10→20:15)
[2018-02-01] MEDS: ALBUTEROL SULF 2.5 MG/0.5ML(0.5%) NEB SOLN NEB SCH ×4 (00:25→19:03)
[2018-02-01] MEDS: IPRATROPIUM BROM 0.5 MG/2.5ML INH SOL NEB SCH ×4 (00:25→19:03)
[2018-02-01 04:00] VITALS: BP 128/65
[2018-02-01 05:03] LABS: Basophils # (auto) 0 uL; Basophils % (auto) 0.5 % (0.0-2.0); Eosinophils # (auto) 0.2 uL; Eosinophils % (auto) 1.7 % (0.0-7.0); Hematocrit 33.6 % (41.0-53.0); Hemoglobin 11.1 g/dL (13.5-17.5); Lymphocytes % (auto) 10.7 % (10.0-50.0); Mean Corpuscular Hemoglobin 31.2 pg (28.0-32.0); Mean Corpuscular Hgb Conc. 32.9 g/dL (32.0-36.0); Mean Corpuscular Volume 94.8 fL (80.0-100.0); Monocytes % (auto) 10.9 % (0.0-12.0); Neutrophils # (auto) 6.9 uL; Neutrophils % (auto) 76.2 % (37.0-80.0); Platelet Count (auto) 310 10^3/uL (140-450); Red Blood Cells 3.55 10^6/uL (4.5-5.90); Red Cell Distribution Width 14.8 % (11.8-14.3); White Blood Cell 9.1 10^3/uL (4.4-10.8)
[2018-02-01] MEDS: PIPERACILLIN-TAZOB 3.375GM 100 ML IV SCH ×3 (05:19→22:39)
[2018-02-01 05:26] LABS: Albumin 1.8 g/dL (3.4-5.0); Calcium 9.3 mg/dL (8.5-10.1); Potassium 4.1 mmol/L (3.5-5.1)
[2018-02-01 05:29] LABS: Bilirubin, Total 0.4 mg/dL (0.2-1.0); Total Protein 5.5 g/dL (6.4-8.2)
[2018-02-01 07:47] VITALS: BP 103/58
[2018-02-01] MEDS: VANCOMYCIN 1GM/250ML 250 ML IV SCH (09:19)
[2018-02-01] MEDS: PANTOPRAZOLE 40 MG/10 ML VIAL IV SCH (10:14)
[2018-02-01] MEDS: VALPROIC ACID 250 MG/5 ML ORAL SOLN GT SCH ×2 (10:14→22:44)
[2018-02-01] MEDS: AMIODARONE HCL 200 MG TAB PO SCH ×2 (10:15→22:44)
[2018-02-01] MEDS: METOPROLOL TARTRATE 25 MG TAB PO SCH ×2 (10:19→22:44)
[2018-02-01] MEDS: ENOXAPARIN SOD 80 MG/0.8ML SYRINGE SC SCH ×2 (10:20→22:39)
[2018-02-01 11:50] VITALS: BP 106/56
[2018-02-01 14:23] VITALS: BP 106/56
[2018-02-01 15:58] VITALS: BP 112/57
[2018-02-01 19:43] VITALS: BP 113/60
[2018-02-02] VITALS: BP 116/68
[2018-02-02] MEDS: ALBUTEROL SULF 2.5 MG/0.5ML(0.5%) NEB SOLN NEB SCH ×4 (00:43→18:29)
[2018-02-02] MEDS: IPRATROPIUM BROM 0.5 MG/2.5ML INH SOL NEB SCH ×4 (00:43→18:29)
[2018-02-02 04:00] VITALS: BP 112/75
[2018-02-02] MEDS: FREE WATER GT SCH ×4 (04:58→18:18)
[2018-02-02 05:06] LABS: Hematocrit 31.5 % (41.0-53.0); Hemoglobin 10.5 g/dL (13.5-17.5); Mean Corpuscular Hemoglobin 31.7 pg (28.0-32.0); Mean Corpuscular Hgb Conc. 33.4 g/dL (32.0-36.0); Mean Corpuscular Volume 94.8 fL (80.0-100.0); Platelet Count (auto) 282 10^3/uL (140-450); Red Blood Cells 3.32 10^6/uL (4.5-5.90); Red Cell Distribution Width 14.5 % (11.8-14.3); White Blood Cell 8.3 10^3/uL (4.4-10.8)
[2018-02-02 05:19] LABS: Basophils % (manual) 0 (0.0-2.0); Blast Cells 0; Promyelocytes % 0; Reactive Lymphocytes 0
[2018-02-02 05:36] LABS: Calcium 8.2 mg/dL (8.5-10.1); Potassium 3.6 mmol/L (3.5-5.1)
[2018-02-02 05:39] LABS: BUN/Creatinine Ratio 45.5
[2018-02-02] MEDS: PIPERACILLIN-TAZOB 3.375GM 100 ML IV SCH ×3 (06:08→21:57)
[2018-02-02 06:43] LABS: Band Neutrophils % (manual) 1; Eosinophils % (manual) 4 (0-7); Lymphocytes % (manual) 10 (10.0-50.0); Metamyelocytes % 2; Monocytes % (manual) 8 (0-12); Myelocytes % 1
[2018-02-02 08:00] VITALS: BP 112/61
[2018-02-02] MEDS: D5W 5% 1,000 ML IV SCH (09:00)
[2018-02-02] MEDS: PANTOPRAZOLE 40 MG/10 ML VIAL IV SCH (10:38)
[2018-02-02] MEDS: VALPROIC ACID 250 MG/5 ML ORAL SOLN GT SCH ×2 (10:38→21:57)
[2018-02-02] MEDS: AMIODARONE HCL 200 MG TAB PO SCH ×2 (10:38→21:59)
[2018-02-02] MEDS: METOPROLOL TARTRATE 25 MG TAB PO SCH ×2 (10:39→21:59)
[2018-02-02] MEDS: ENOXAPARIN SOD 80 MG/0.8ML SYRINGE SC SCH ×2 (10:39→21:57)
[2018-02-02 11:50] VITALS: BP 109/71
[2018-02-02] MEDS: VANCOMYCIN 1GM/250ML 250 ML IV SCH (13:45)
[2018-02-02 15:50] VITALS: BP 137/75
[2018-02-02 19:50] VITALS: BP 127/75
[2018-02-03] VITALS: BP 154/81
[2018-02-03] MEDS: IPRATROPIUM BROM 0.5 MG/2.5ML INH SOL NEB SCH ×4 (00:05→18:29)
[2018-02-03] MEDS: ALBUTEROL SULF 2.5 MG/0.5ML(0.5%) NEB SOLN NEB SCH ×4 (00:06→18:29)
[2018-02-03 04:00] VITALS: BP 104/70
[2018-02-03 05:51] LABS: Hematocrit 31.6 % (41.0-53.0); Hemoglobin 10.6 g/dL (13.5-17.5); Mean Corpuscular Hemoglobin 31.5 pg (28.0-32.0); Mean Corpuscular Hgb Conc. 33.7 g/dL (32.0-36.0); Mean Corpuscular Volume 93.6 fL (80.0-100.0); Platelet Count (auto) 362 10^3/uL (140-450); Red Blood Cells 3.37 10^6/uL (4.5-5.90); Red Cell Distribution Width 14.5 % (11.8-14.3); White Blood Cell 12.9 10^3/uL (4.4-10.8)
[2018-02-03] MEDS: PIPERACILLIN-TAZOB 3.375GM 100 ML IV SCH ×3 (05:52→21:17)
[2018-02-03] MEDS: FREE WATER GT SCH ×5 (05:52→23:25)
[2018-02-03 06:02] LABS: Potassium 4.4 mmol/L (3.5-5.1)
[2018-02-03 06:20] LABS: Basophils % (manual) 0 (0.0-2.0); Blast Cells 0; Myelocytes % 0; Promyelocytes % 0; Reactive Lymphocytes 0
[2018-02-03 08:00] VITALS: BP 112/65
[2018-02-03] MEDS ORDERED: LORazepam 2MG/ML-1ML VIAL IV PRN (09:00)
[2018-02-03] MEDS: ENOXAPARIN SOD 80 MG/0.8ML SYRINGE SC SCH ×2 (10:00→21:18)
[2018-02-03] MEDS: AMIODARONE HCL 200 MG TAB PO SCH ×2 (10:13→21:18)
[2018-02-03] MEDS: PANTOPRAZOLE 40 MG/10 ML VIAL IV SCH (10:13)
[2018-02-03] MEDS: METOPROLOL TARTRATE 25 MG TAB PO SCH ×3 (10:13→21:30)
[2018-02-03 10:14] LABS: Band Neutrophils % (manual) 8; Eosinophils % (manual) 1 (0-7); Lymphocytes % (manual) 9 (10.0-50.0); Metamyelocytes % 2; Monocytes % (manual) 7 (0-12)
[2018-02-03] MEDS: VALPROIC ACID 250 MG/5 ML ORAL SOLN GT SCH ×2 (10:14→21:19)
[2018-02-03 11:50] VITALS: BP 133/81
[2018-02-03] MEDS: VANCOMYCIN 1GM/250ML 250 ML IV SCH (13:52)
[2018-02-03 15:51] VITALS: BP 156/97
[2018-02-03 19:50] VITALS: BP 124/55
[2018-02-04] VITALS (9 sets, daily range): BP systolic 100–138; BP diastolic 51–75
[2018-02-04] MEDS: ALBUTEROL SULF 2.5 MG/0.5ML(0.5%) NEB SOLN NEB SCH ×4 (00:31→18:40)
[2018-02-04] MEDS: IPRATROPIUM BROM 0.5 MG/2.5ML INH SOL NEB SCH ×4 (00:31→18:40)
[2018-02-04] MEDS: FREE WATER GT SCH ×3 (05:08→17:23)
[2018-02-04] MEDS: PIPERACILLIN-TAZOB 3.375GM 100 ML IV SCH ×3 (05:08→22:33)
[2018-02-04 06:08] LABS: BUN/Creatinine Ratio 36.7; Calcium 8.8 mg/dL (8.5-10.1); Potassium 4.5 mmol/L (3.5-5.1)
[2018-02-04 06:13] LABS: Basophils # (auto) 0 uL; Basophils % (auto) 0.2 % (0.0-2.0); Eosinophils # (auto) 0.1 uL; Eosinophils % (auto) 1.1 % (0.0-7.0); Hematocrit 29.3 % (41.0-53.0); Lymphocytes # (auto) 1.3 uL; Lymphocytes % (auto) 10.5 % (10.0-50.0); Mean Corpuscular Hemoglobin 31.7 pg (28.0-32.0); Mean Corpuscular Hgb Conc. 34.2 g/dL (32.0-36.0); Mean Corpuscular Volume 92.7 fL (80.0-100.0); Monocytes # (auto) 1.4 uL; Monocytes % (auto) 11.2 % (0.0-12.0); Neutrophils # (auto) 9.7 uL; Platelet Count (auto) 369 10^3/uL (140-450); Red Blood Cells 3.16 10^6/uL (4.5-5.90); Red Cell Distribution Width 14.4 % (11.8-14.3); White Blood Cell 12.7 10^3/uL (4.4-10.8)
[2018-02-04] MEDS: ENOXAPARIN SOD 80 MG/0.8ML SYRINGE SC SCH ×2 (10:40→22:35)
[2018-02-04] MEDS: PANTOPRAZOLE 40 MG/10 ML VIAL IV SCH (10:40)
[2018-02-04] MEDS: AMIODARONE HCL 200 MG TAB PO SCH ×2 (10:40→22:34)
[2018-02-04] MEDS: VALPROIC ACID 250 MG/5 ML ORAL SOLN GT SCH ×2 (10:40→22:33)
[2018-02-04] MEDS: ACETAMINOPHEN 650 mg PER 20 mL UD PO PRN (10:41)
[2018-02-04] MEDS ORDERED: FLUCONAZOLE 200MG/100ML 100 ML IV ONE (11:15)
[2018-02-04] MEDS: VANCOMYCIN 1GM/250ML 250 ML IV SCH (15:15)
[2018-02-04] MEDS: METOPROLOL TARTRATE 25 MG TAB PO SCH ×2 (22:00→23:00)
[2018-02-05] VITALS (9 sets, daily range): BP systolic 96–139; BP diastolic 45–71
[2018-02-05] MEDS: ALBUTEROL SULF 2.5 MG/0.5ML(0.5%) NEB SOLN NEB SCH ×4 (00:04→18:17)
[2018-02-05] MEDS: IPRATROPIUM BROM 0.5 MG/2.5ML INH SOL NEB SCH ×4 (00:05→18:17)
[2018-02-05 05:16] LABS: Hematocrit 27.2 % (41.0-53.0); Hemoglobin 9.1 g/dL (13.5-17.5); Mean Corpuscular Hemoglobin 31.1 pg (28.0-32.0); Mean Corpuscular Hgb Conc. 33.5 g/dL (32.0-36.0); Mean Corpuscular Volume 92.9 fL (80.0-100.0); Platelet Count (auto) 414 10^3/uL (140-450); Red Blood Cells 2.93 10^6/uL (4.5-5.90); Red Cell Distribution Width 14.6 % (11.8-14.3)
[2018-02-05 05:26] LABS: Basophils % (manual) 0 (0.0-2.0); Blast Cells 0; Promyelocytes % 0; Reactive Lymphocytes 0
[2018-02-05 05:28] LABS: BUN/Creatinine Ratio 36.6; Calcium 8.4 mg/dL (8.5-10.1); Potassium 4.7 mmol/L (3.5-5.1)
[2018-02-05] MEDS: FREE WATER GT SCH ×4 (06:05→18:00)
[2018-02-05] MEDS: PIPERACILLIN-TAZOB 3.375GM 100 ML IV SCH ×3 (06:05→21:59)
[2018-02-05 06:53] LABS: Band Neutrophils % (manual) 1; Eosinophils % (manual) 1 (0-7); Lymphocytes % (manual) 11 (10.0-50.0); Metamyelocytes % 2; Monocytes % (manual) 4 (0-12); Myelocytes % 1
[2018-02-05] MEDS: Isosource 1.5 Cal 1 Liter GT SCH (07:00)
[2018-02-05] MEDS: METOPROLOL TARTRATE 25 MG TAB PO SCH (09:50)
[2018-02-05] MEDS: ENOXAPARIN SOD 80 MG/0.8ML SYRINGE SC SCH ×2 (10:05→22:00)
[2018-02-05] MEDS: FLUCONAZOLE 200MG/100ML 100 ML IV SCH (10:05)
[2018-02-05] MEDS: AMIODARONE HCL 200 MG TAB PO SCH ×2 (10:05→22:00)
[2018-02-05] MEDS: PANTOPRAZOLE 40 MG/10 ML VIAL IV SCH (10:05)
[2018-02-05] MEDS: VALPROIC ACID 250 MG/5 ML ORAL SOLN GT SCH ×2 (10:06→22:00)
[2018-02-05] MEDS: VANCOMYCIN 1GM/250ML 250 ML IV SCH (13:35)
[2018-02-05] MEDS ORDERED: QUEtiapine FUMARATE 25 MG TAB PO SCH (22:00)
[2018-02-06] VITALS: BP 92/46
[2018-02-06] MEDS: IPRATROPIUM BROM 0.5 MG/2.5ML INH SOL NEB SCH ×4 (00:21→19:08)
[2018-02-06] MEDS: ALBUTEROL SULF 2.5 MG/0.5ML(0.5%) NEB SOLN NEB SCH ×4 (00:21→19:07)
[2018-02-06 04:15] VITALS: BP 92/40
[2018-02-06 05:16] LABS: Hemoglobin 7.8 g/dL (13.5-17.5)
[2018-02-06 05:17] LABS: Hematocrit 24.2 % (41.0-53.0); Mean Corpuscular Hemoglobin 30.3 pg (28.0-32.0); Mean Corpuscular Hgb Conc. 32.4 g/dL (32.0-36.0); Mean Corpuscular Volume 93.4 fL (80.0-100.0); Platelet Count (auto) 412 10^3/uL (140-450); Red Blood Cells 2.59 10^6/uL (4.5-5.90); Red Cell Distribution Width 14.3 % (11.8-14.3); White Blood Cell 14.3 10^3/uL (4.4-10.8)
[2018-02-06 05:22] LABS: Band Neutrophils % (manual) 0; Basophils % (manual) 0 (0.0-2.0); Blast Cells 0; Myelocytes % 0; Promyelocytes % 0; Reactive Lymphocytes 0
[2018-02-06 05:32] LABS: Albumin 1.5 g/dL (3.4-5.0); BUN/Creatinine Ratio 35.3; Calcium 8.4 mg/dL (8.5-10.1); Potassium 4.5 mmol/L (3.5-5.1)
[2018-02-06] MEDS: PIPERACILLIN-TAZOB 3.375GM 100 ML IV SCH ×3 (05:34→21:46)
[2018-02-06] MEDS: FREE WATER GT SCH ×5 (05:34→23:56)
[2018-02-06 05:35] LABS: Bilirubin, Total 0.4 mg/dL (0.2-1.0)
[2018-02-06 06:40] LABS: Eosinophils % (manual) 1 (0-7); Lymphocytes % (manual) 10 (10.0-50.0); Metamyelocytes % 2; Monocytes % (manual) 11 (0-12)
[2018-02-06 08:00] VITALS: BP 115/66
[2018-02-06] MEDS: ENOXAPARIN SOD 80 MG/0.8ML SYRINGE SC SCH (10:00)
[2018-02-06] MEDS: FLUCONAZOLE 200MG/100ML 100 ML IV SCH (10:44)
[2018-02-06] MEDS ORDERED: FUROSEMIDE 20 MG/2 ML VIAL IV ONE (10:45)
[2018-02-06] MEDS: AMIODARONE HCL 200 MG TAB PO SCH ×2 (10:45→21:47)
[2018-02-06] MEDS ORDERED: POTASSIUM CHL 10% (20 MEQ/15ML) 15ml ORAL SOLN GT ONE (10:45)
[2018-02-06] MEDS: PANTOPRAZOLE 40 MG/10 ML VIAL IV SCH (10:45)
[2018-02-06] MEDS: VALPROIC ACID 250 MG/5 ML ORAL SOLN GT SCH ×2 (10:59→21:46)
[2018-02-06 11:25] LABS: Hemoglobin 8.1 g/dL (13.5-17.5)
[2018-02-06 11:26] LABS: Hematocrit 24.1 % (41.0-53.0); Mean Corpuscular Hemoglobin 31.2 pg (28.0-32.0); Mean Corpuscular Hgb Conc. 33.6 g/dL (32.0-36.0); Platelet Count (auto) 451 10^3/uL (140-450); Red Cell Distribution Width 14.3 % (11.8-14.3); White Blood Cell 14.1 10^3/uL (4.4-10.8)
[2018-02-06 11:30] LABS: Band Neutrophils % (manual) 0; Basophils % (manual) 0 (0.0-2.0); Blast Cells 0; Metamyelocytes % 0; Myelocytes % 0; Promyelocytes % 0; Reactive Lymphocytes 0
[2018-02-06 12:00] VITALS: BP 129/68
[2018-02-06 12:12] LABS: Eosinophils % (manual) 3 (0-7); Lymphocytes % (manual) 10 (10.0-50.0); Monocytes % (manual) 7 (0-12)
[2018-02-06] MEDS: VANCOMYCIN 1GM/250ML 250 ML IV SCH (13:26)
[2018-02-06 16:00] VITALS: BP 124/53
[2018-02-06 20:00] VITALS: BP 121/53
[2018-02-06] MEDS: APIXABAN 2.5 MG TAB PO SCH (21:46)
[2018-02-07] VITALS (14 sets, daily range): BP systolic 104–146; BP diastolic 43–80
[2018-02-07] MEDS: ALBUTEROL SULF 2.5 MG/0.5ML(0.5%) NEB SOLN NEB SCH ×4 (01:00→19:00)
[2018-02-07] MEDS: IPRATROPIUM BROM 0.5 MG/2.5ML INH SOL NEB SCH ×4 (01:00→19:00)
[2018-02-07 05:53] LABS: Hematocrit 24.6 % (41.0-53.0); Red Blood Cells 2.64 10^6/uL (4.5-5.90)
[2018-02-07 05:56] LABS: Hemoglobin 8.3 g/dL (13.5-17.5); Mean Corpuscular Hemoglobin 31.3 pg (28.0-32.0); Mean Corpuscular Hgb Conc. 33.6 g/dL (32.0-36.0); Mean Corpuscular Volume 93.3 fL (80.0-100.0); Platelet Count (auto) 554 10^3/uL (140-450); Red Cell Distribution Width 14.5 % (11.8-14.3); White Blood Cell 14.5 10^3/uL (4.4-10.8)
[2018-02-07 05:58] LABS: Basophils % (manual) 0 (0.0-2.0); Blast Cells 0; Myelocytes % 0; Promyelocytes % 0; Reactive Lymphocytes 0
[2018-02-07] MEDS: FREE WATER GT SCH ×4 (06:01→23:35)
[2018-02-07] MEDS: ACETAMINOPHEN 650 mg PER 20 mL UD PO PRN (06:01)
[2018-02-07] MEDS: PIPERACILLIN-TAZOB 3.375GM 100 ML IV SCH ×3 (06:01→21:35)
[2018-02-07 06:02] LABS: Albumin 1.7 g/dL (3.4-5.0); Calcium 8.5 mg/dL (8.5-10.1); Potassium 4.9 mmol/L (3.5-5.1)
[2018-02-07 06:05] LABS: Bilirubin, Total 0.3 mg/dL (0.2-1.0); Total Protein 5.6 g/dL (6.4-8.2)
[2018-02-07 06:48] LABS: Band Neutrophils % (manual) 4; Eosinophils % (manual) 2 (0-7); Lymphocytes % (manual) 5 (10.0-50.0); Monocytes % (manual) 5 (0-12)
[2018-02-07 06:50] LABS: Metamyelocytes % 4
[2018-02-07] MEDS: PANTOPRAZOLE 40 MG/10 ML VIAL IV SCH (10:07)
[2018-02-07] MEDS: APIXABAN 2.5 MG TAB PO SCH ×2 (10:07→21:36)
[2018-02-07] MEDS: AMIODARONE HCL 200 MG TAB PO SCH ×2 (10:07→21:35)
[2018-02-07] MEDS: FLUCONAZOLE 200MG/100ML 100 ML IV SCH (10:07)
[2018-02-07] MEDS: VALPROIC ACID 250 MG/5 ML ORAL SOLN GT SCH ×2 (10:07→21:35)
[2018-02-07] MEDS: POTASSIUM CHL 10% (20 MEQ/15ML) 15ml ORAL SOLN GT SCH (10:08)
[2018-02-07] MEDS: FUROSEMIDE 20 MG TAB PO SCH (10:08)
[2018-02-07] MEDS ORDERED: SODIUM CHLORIDE 0.9% 250 ML IV ONE (12:45)
[2018-02-07] MEDS: VANCOMYCIN 1GM/250ML 250 ML IV SCH (14:15)
[2018-02-07 14:49] LABS: Urine Bacteria NONE SEEN /hpf (None Seen); Urine Blood 1+ /uL (Negative); Urine Specific Gravity 1.014 (1.001-1.035); Urine WBC 1 /hpf (0 - 3)
[2018-02-08] MEDS: IPRATROPIUM BROM 0.5 MG/2.5ML INH SOL NEB SCH ×4 (00:50→18:23)
[2018-02-08] MEDS: ALBUTEROL SULF 2.5 MG/0.5ML(0.5%) NEB SOLN NEB SCH ×4 (00:50→18:23)
[2018-02-08 04:00] VITALS: BP 117/60
[2018-02-08] MEDS: FREE WATER GT SCH ×4 (06:05→23:55)
[2018-02-08] MEDS: PIPERACILLIN-TAZOB 3.375GM 100 ML IV SCH ×3 (06:05→21:16)
[2018-02-08] MEDS: Isosource 1.5 Cal 1 Liter GT SCH (06:41)
[2018-02-08 08:00] VITALS: BP 95/49
[2018-02-08] MEDS ORDERED: ceFAZolin 1GM/100ML 50 ML IV ONE (08:30)
[2018-02-08] MEDS: POTASSIUM CHL 10% (20 MEQ/15ML) 15ml ORAL SOLN GT SCH (10:00)
[2018-02-08] MEDS: VALPROIC ACID 250 MG/5 ML ORAL SOLN GT SCH ×2 (10:33→21:16)
[2018-02-08] MEDS: FUROSEMIDE 20 MG TAB PO SCH (10:34)
[2018-02-08] MEDS: AMIODARONE HCL 200 MG TAB PO SCH ×2 (10:34→21:17)
[2018-02-08] MEDS: FLUCONAZOLE 200MG/100ML 100 ML IV SCH (10:34)
[2018-02-08] MEDS: PANTOPRAZOLE 40 MG/10 ML VIAL IV SCH (10:34)
[2018-02-08] MEDS: APIXABAN 2.5 MG TAB PO SCH ×2 (10:35→21:17)
[2018-02-08 11:45] VITALS: BP 110/70
[2018-02-08] MEDS: VANCOMYCIN 1GM/250ML 250 ML IV SCH (13:33)
[2018-02-08 15:42] VITALS: BP 126/56
[2018-02-08 19:50] VITALS: BP 112/66
[2018-02-08 23:37] VITALS: BP 106/56
[2018-02-09] MEDS: ALBUTEROL SULF 2.5 MG/0.5ML(0.5%) NEB SOLN NEB SCH ×5 (00:26→23:43)
[2018-02-09] MEDS: IPRATROPIUM BROM 0.5 MG/2.5ML INH SOL NEB SCH ×5 (00:27→23:42)
[2018-02-09 04:18] VITALS: BP 94/50
[2018-02-09] MEDS: FREE WATER GT SCH ×3 (05:17→17:58)
[2018-02-09] MEDS: PIPERACILLIN-TAZOB 3.375GM 100 ML IV SCH ×3 (05:17→22:00)
[2018-02-09 06:10] LABS: BUN/Creatinine Ratio 46.9; Calcium 8.3 mg/dL (8.5-10.1); Potassium 4.7 mmol/L (3.5-5.1)
[2018-02-09 08:00] VITALS: BP 115/52
[2018-02-09] MEDS: PANTOPRAZOLE 40 MG/10 ML VIAL IV SCH (10:32)
[2018-02-09] MEDS: POTASSIUM CHL 10% (20 MEQ/15ML) 15ml ORAL SOLN GT SCH (10:32)
[2018-02-09] MEDS: APIXABAN 2.5 MG TAB PO SCH ×2 (10:32→22:00)
[2018-02-09] MEDS: FUROSEMIDE 20 MG TAB PO SCH (10:33)
[2018-02-09] MEDS: AMIODARONE HCL 200 MG TAB PO SCH ×2 (10:33→22:00)
[2018-02-09] MEDS: FLUCONAZOLE 200MG/100ML 100 ML IV SCH (10:33)
[2018-02-09] MEDS: VALPROIC ACID 250 MG/5 ML ORAL SOLN GT SCH ×2 (10:34→22:00)
[2018-02-09 11:52] VITALS: BP 131/65
[2018-02-09] MEDS: VANCOMYCIN 1GM/250ML 250 ML IV SCH (13:30)
[2018-02-09 15:49] VITALS: BP 112/57
[2018-02-09 19:57] VITALS: BP 110/56
[2018-02-10] VITALS (7 sets, daily range): BP systolic 100–158; BP diastolic 49–87
[2018-02-10 05:15] LABS: White Blood Cell 15.6 10^3/uL (4.4-10.8)
[2018-02-10 05:23] LABS: Hemoglobin 8.3 g/dL (13.5-17.5); Mean Corpuscular Hemoglobin 31.2 pg (28.0-32.0); Mean Corpuscular Hgb Conc. 33.3 g/dL (32.0-36.0); Mean Corpuscular Volume 93.7 fL (80.0-100.0); Platelet Count (auto) 737 10^3/uL (140-450); Red Blood Cells 2.67 10^6/uL (4.5-5.90); Red Cell Distribution Width 14.4 % (11.8-14.3)
[2018-02-10 05:25] LABS: INR 0.93 (0.9-1.15); Partial Thromboplastin Time 26.4 sec (23.78-33.04)
[2018-02-10 05:35] LABS: Band Neutrophils % (manual) 0; Basophils % (manual) 0 (0.0-2.0); Blast Cells 0; Eosinophils % (manual) 0 (0-7); Promyelocytes % 0; Reactive Lymphocytes 0
[2018-02-10 05:44] LABS: Albumin 1.8 g/dL (3.4-5.0); BUN/Creatinine Ratio 46.9; Bilirubin, Total 0.3 mg/dL (0.2-1.0); Calcium 8.6 mg/dL (8.5-10.1); Potassium 5.1 mmol/L (3.5-5.1)
[2018-02-10] MEDS: ALBUTEROL SULF 2.5 MG/0.5ML(0.5%) NEB SOLN NEB SCH ×3 (05:54→18:33)
[2018-02-10] MEDS: IPRATROPIUM BROM 0.5 MG/2.5ML INH SOL NEB SCH ×3 (05:54→18:33)
[2018-02-10] MEDS: FREE WATER GT SCH ×4 (06:00→17:25)
[2018-02-10 06:08] LABS: Lymphocytes % (manual) 13 (10.0-50.0); Metamyelocytes % 3; Monocytes % (manual) 10 (0-12); Myelocytes % 4
[2018-02-10] MEDS: PIPERACILLIN-TAZOB 3.375GM 100 ML IV SCH ×3 (06:29→22:00)
[2018-02-10] MEDS ORDERED: ceFAZolin 1GM/100ML 50 ML IV ONE (08:30)
[2018-02-10] MEDS: VALPROIC ACID 250 MG/5 ML ORAL SOLN GT SCH ×2 (12:22→22:00)
[2018-02-10] MEDS: FLUCONAZOLE 200MG/100ML 100 ML IV SCH (12:22)
[2018-02-10] MEDS: POTASSIUM CHL 10% (20 MEQ/15ML) 15ml ORAL SOLN GT SCH (12:22)
[2018-02-10] MEDS: FUROSEMIDE 20 MG TAB PO SCH (12:23)
[2018-02-10] MEDS: AMIODARONE HCL 200 MG TAB PO SCH ×2 (12:23→22:00)
[2018-02-10] MEDS: PANTOPRAZOLE 40 MG/10 ML VIAL IV SCH (12:23)
[2018-02-10] MEDS: APIXABAN 2.5 MG TAB PO SCH ×2 (12:23→22:00)
[2018-02-10] MEDS: VANCOMYCIN 1GM/250ML 250 ML IV SCH (13:02)
[2018-02-10] MEDS: Isosource 1.5 Cal 1 Liter GT SCH (16:17)
[2018-02-10] MEDS: ACETAMINOPHEN 650 mg PER 20 mL UD PO PRN (16:17)
[2018-02-11] VITALS: BP 136/70
[2018-02-11] MEDS: ALBUTEROL SULF 2.5 MG/0.5ML(0.5%) NEB SOLN NEB SCH ×4 (00:09→19:24)
[2018-02-11] MEDS: IPRATROPIUM BROM 0.5 MG/2.5ML INH SOL NEB SCH ×4 (00:09→19:24)
[2018-02-11 04:00] VITALS: BP 117/67
[2018-02-11] MEDS: FREE WATER GT SCH ×5 (06:00→23:39)
[2018-02-11] MEDS: PIPERACILLIN-TAZOB 3.375GM 100 ML IV SCH ×3 (06:00→21:10)
[2018-02-11 08:00] VITALS: BP 117/52
[2018-02-11] MEDS: FLUCONAZOLE 200MG/100ML 100 ML IV SCH (09:58)
[2018-02-11] MEDS: PANTOPRAZOLE 40 MG/10 ML VIAL IV SCH (09:58)
[2018-02-11] MEDS: POTASSIUM CHL 10% (20 MEQ/15ML) 15ml ORAL SOLN GT SCH (10:00)
[2018-02-11] MEDS: AMIODARONE HCL 200 MG TAB PO SCH ×2 (10:09→21:10)
[2018-02-11] MEDS: VALPROIC ACID 250 MG/5 ML ORAL SOLN GT SCH ×2 (10:09→21:25)
[2018-02-11] MEDS: APIXABAN 2.5 MG TAB PO SCH (10:09)
[2018-02-11] MEDS: FUROSEMIDE 20 MG TAB PO SCH (10:10)
[2018-02-11 12:00] VITALS: BP 135/72
[2018-02-11] MEDS ORDERED: ACETAMINOPHEN 650 mg PER 20 mL UD PO PRN (12:30)
[2018-02-11] MEDS ORDERED: MORPHINE SULFATE 4 MG/ML SYR/VIAL IV PRN (12:30)
[2018-02-11] MEDS ORDERED: LORazepam 2MG/ML-1ML VIAL IV PRN (12:30)
[2018-02-11] MEDS ORDERED: FUROSEMIDE 40 MG/4 ML VIAL IV ONE (12:30)
[2018-02-11] MEDS ORDERED: LACTULOSE 20Gm/30ML SOLN PO PRN (12:30)
[2018-02-11] MEDS ORDERED: ALBUTEROL SULF 2.5 MG/0.5ML(0.5%) NEB SOLN NEB PRN (12:30)
[2018-02-11] MEDS ORDERED: NITROGLYCERIN 0.4 MG SL TAB SL PRN (12:30)
[2018-02-11] MEDS ORDERED: PROMETHAZINE HCL 25 MG/ML 1ML IV PRN (12:30)
[2018-02-11] MEDS: VANCOMYCIN 1GM/250ML 250 ML IV SCH (13:30)
[2018-02-11 16:00] VITALS: BP 119/56
[2018-02-11 20:00] VITALS: BP 116/58
[2018-02-12] VITALS (12 sets, daily range): BP systolic 112–130; BP diastolic 56–71
[2018-02-12] MEDS: ALBUTEROL SULF 2.5 MG/0.5ML(0.5%) NEB SOLN NEB SCH ×4 (01:10→18:59)
[2018-02-12] MEDS: IPRATROPIUM BROM 0.5 MG/2.5ML INH SOL NEB SCH ×4 (01:10→18:59)
[2018-02-12] MEDS: FREE WATER GT SCH ×3 (05:17→17:40)
[2018-02-12] MEDS: PIPERACILLIN-TAZOB 3.375GM 100 ML IV SCH ×3 (05:17→22:13)
[2018-02-12 05:18] LABS: Hematocrit 22.2 % (41.0-53.0); Hemoglobin 7.4 g/dL (13.5-17.5)
[2018-02-12 05:20] LABS: Mean Corpuscular Hemoglobin 31.2 pg (28.0-32.0); Mean Corpuscular Hgb Conc. 33.3 g/dL (32.0-36.0); Mean Corpuscular Volume 93.6 fL (80.0-100.0); Platelet Count (auto) 596 10^3/uL (140-450); Red Blood Cells 2.37 10^6/uL (4.5-5.90); Red Cell Distribution Width 14.7 % (11.8-14.3); White Blood Cell 11.6 10^3/uL (4.4-10.8)
[2018-02-12 05:24] LABS: Basophils % (manual) 0 (0.0-2.0); Blast Cells 0; Metamyelocytes % 0; Promyelocytes % 0; Reactive Lymphocytes 0
[2018-02-12 05:44] LABS: BUN/Creatinine Ratio 53.4; Calcium 8.4 mg/dL (8.5-10.1); Potassium 4.3 mmol/L (3.5-5.1)
[2018-02-12 06:43] LABS: Band Neutrophils % (manual) 2; Lymphocytes % (manual) 9 (10.0-50.0)
[2018-02-12 06:44] LABS: Eosinophils % (manual) 4 (0-7); Myelocytes % 1
[2018-02-12 06:45] LABS: Monocytes % (manual) 14 (0-12)
[2018-02-12] MEDS: FUROSEMIDE 20 MG TAB PO SCH (09:10)
[2018-02-12] MEDS: PANTOPRAZOLE 40 MG/10 ML VIAL IV SCH (09:10)
[2018-02-12] MEDS: AMIODARONE HCL 200 MG TAB PO SCH ×2 (09:11→22:13)
[2018-02-12] MEDS: VALPROIC ACID 250 MG/5 ML ORAL SOLN GT SCH ×2 (09:11→22:13)
[2018-02-12] MEDS: POTASSIUM CHL 10% (20 MEQ/15ML) 15ml ORAL SOLN GT SCH (09:11)
[2018-02-12] MEDS: FLUCONAZOLE 200MG/100ML 100 ML IV SCH (09:11)
[2018-02-12] MEDS ORDERED: POTASSIUM CHL 10% (20 MEQ/15ML) 15ml ORAL SOLN GT ONE (11:45)
[2018-02-12] MEDS ORDERED: FUROSEMIDE 40 MG/4 ML VIAL IV ONE (11:45)
[2018-02-12] MEDS ORDERED: VANCOMYCIN PER PHARMACY 0 MG IV SCH (11:45)
[2018-02-12] MEDS ORDERED: PANTOPRAZOLE 40 MG/10 ML VIAL IV ONE (12:00)
[2018-02-12] MEDS: VANCOMYCIN 1GM/250ML 250 ML IV SCH (13:39)
[2018-02-12] MEDS ORDERED: Isosource 1.5 Cal 1 Liter GT SCH (16:00)
[2018-02-13] VITALS (7 sets, daily range): BP systolic 117–163; BP diastolic 68–87
[2018-02-13] MEDS: FREE WATER GT SCH ×4 (05:55→16:16)
[2018-02-13] MEDS: PIPERACILLIN-TAZOB 3.375GM 100 ML IV SCH ×3 (05:55→21:13)
[2018-02-13 06:12] LABS: Hematocrit 29.8 % (41.0-53.0); Mean Corpuscular Hemoglobin 31.1 pg (28.0-32.0); Mean Corpuscular Hgb Conc. 33.4 g/dL (32.0-36.0); Mean Corpuscular Volume 93.2 fL (80.0-100.0); Platelet Count (auto) 663 10^3/uL (140-450); Red Cell Distribution Width 14.4 % (11.8-14.3); White Blood Cell 13.8 10^3/uL (4.4-10.8)
[2018-02-13 06:21] LABS: Basophils % (manual) 0 (0.0-2.0); Blast Cells 0; Eosinophils % (manual) 0 (0-7); Promyelocytes % 0; Reactive Lymphocytes 0
[2018-02-13] MEDS: IPRATROPIUM BROM 0.5 MG/2.5ML INH SOL NEB SCH ×4 (07:16→18:11)
[2018-02-13] MEDS: ALBUTEROL SULF 2.5 MG/0.5ML(0.5%) NEB SOLN NEB SCH ×4 (07:16→18:11)
[2018-02-13 07:42] LABS: Band Neutrophils % (manual) 3; Lymphocytes % (manual) 16 (10.0-50.0); Metamyelocytes % 4; Monocytes % (manual) 3 (0-12); Myelocytes % 2
[2018-02-13] MEDS: FLUCONAZOLE 200MG/100ML 100 ML IV SCH (09:30)
[2018-02-13] MEDS: AMIODARONE HCL 200 MG TAB PO SCH ×3 (10:00→21:48)
[2018-02-13] MEDS: POTASSIUM CHL 10% (20 MEQ/15ML) 15ml ORAL SOLN GT SCH (10:00)
[2018-02-13] MEDS ORDERED: PANTOPRAZOLE 40 MG/10 ML VIAL IV SCH (10:00)
[2018-02-13] MEDS: FUROSEMIDE 20 MG TAB PO SCH (10:00)
[2018-02-13] MEDS: VALPROIC ACID 250 MG/5 ML ORAL SOLN GT SCH ×3 (10:00→21:47)
[2018-02-13] MEDS ORDERED: SODIUM CHLORIDE LOCK 10 ML ONE (11:03)
[2018-02-13] MEDS ORDERED: ceFAZolin 1GM/100ML 100 ML IV ONE (11:03)
[2018-02-13] MEDS ORDERED: MIDAZOLAM HCL 5 MG/ML-1ML VIAL ONE (11:04)
[2018-02-13] MEDS ORDERED: fentaNYL CITRATE 100 MCG/2 ML VL ONE (11:04)
[2018-02-13] MEDS ORDERED: D5W/SOD CHL 0.45% 1,000 ML IV SCH (12:30)
[2018-02-13] MEDS: VANCOMYCIN 1GM/250ML 250 ML IV SCH (12:52)
[2018-02-13] MEDS: PANTOPRAZOLE 40 MG/10 ML VIAL IV SCH (21:11)
[2018-02-14] MEDS: ALBUTEROL SULF 2.5 MG/0.5ML(0.5%) NEB SOLN NEB SCH ×4 (00:38→18:01)
[2018-02-14] MEDS: IPRATROPIUM BROM 0.5 MG/2.5ML INH SOL NEB SCH ×4 (00:38→18:01)
[2018-02-14] MEDS: FREE WATER GT SCH ×5 (05:40→23:57)
[2018-02-14] MEDS: PIPERACILLIN-TAZOB 3.375GM 100 ML IV SCH ×3 (06:10→21:19)
[2018-02-14 08:00] VITALS: BP 135/75
[2018-02-14] MEDS: AMIODARONE HCL 200 MG TAB PO SCH ×2 (10:00→21:09)
[2018-02-14] MEDS: FLUCONAZOLE 200MG/100ML 100 ML IV SCH (10:18)
[2018-02-14] MEDS: POTASSIUM CHL 10% (20 MEQ/15ML) 15ml ORAL SOLN GT SCH (10:19)
[2018-02-14] MEDS: VALPROIC ACID 250 MG/5 ML ORAL SOLN GT SCH ×2 (10:20→21:19)
[2018-02-14] MEDS: PANTOPRAZOLE 40 MG/10 ML VIAL IV SCH ×2 (10:20→21:19)
[2018-02-14] MEDS: FUROSEMIDE 20 MG TAB PO SCH (10:22)
[2018-02-14 12:00] VITALS: BP 142/81
[2018-02-14] MEDS: VANCOMYCIN 1GM/250ML 250 ML IV SCH (13:30)
[2018-02-14 15:51] VITALS: BP 152/82
[2018-02-14 19:43] VITALS: BP 135/70
[2018-02-15] VITALS: BP 115/59
[2018-02-15] MEDS: ALBUTEROL SULF 2.5 MG/0.5ML(0.5%) NEB SOLN NEB SCH ×4 (00:46→18:39)
[2018-02-15] MEDS: IPRATROPIUM BROM 0.5 MG/2.5ML INH SOL NEB SCH ×4 (00:47→18:39)
[2018-02-15 04:00] VITALS: BP 146/74
[2018-02-15 05:07] LABS: Hematocrit 29.2 % (41.0-53.0); Hemoglobin 9.8 g/dL (13.5-17.5); Mean Corpuscular Hemoglobin 31.4 pg (28.0-32.0); Mean Corpuscular Hgb Conc. 33.6 g/dL (32.0-36.0); Mean Corpuscular Volume 93.5 fL (80.0-100.0); Platelet Count (auto) 537 10^3/uL (140-450); Red Blood Cells 3.13 10^6/uL (4.5-5.90); Red Cell Distribution Width 14.9 % (11.8-14.3); White Blood Cell 11.1 10^3/uL (4.4-10.8)
[2018-02-15 05:09] LABS: Band Neutrophils % (manual) 0; Basophils % (manual) 0 (0.0-2.0); Blast Cells 0; Metamyelocytes % 0; Myelocytes % 0; Promyelocytes % 0; Reactive Lymphocytes 0
[2018-02-15 05:27] LABS: BUN/Creatinine Ratio 44.6; Calcium 8.4 mg/dL (8.5-10.1); Potassium 3.8 mmol/L (3.5-5.1)
[2018-02-15] MEDS: PIPERACILLIN-TAZOB 3.375GM 100 ML IV SCH ×3 (05:46→21:27)
[2018-02-15] MEDS: FREE WATER GT SCH ×3 (05:46→17:46)
[2018-02-15 08:06] VITALS: BP 141/78
[2018-02-15 08:49] LABS: Lymphocytes % (manual) 20 (10.0-50.0)
[2018-02-15 08:50] LABS: Eosinophils % (manual) 1 (0-7); Monocytes % (manual) 11 (0-12)
[2018-02-15] MEDS: VALPROIC ACID 250 MG/5 ML ORAL SOLN GT SCH ×2 (09:35→21:28)
[2018-02-15] MEDS: FLUCONAZOLE 200MG/100ML 100 ML IV SCH (09:35)
[2018-02-15] MEDS: AMIODARONE HCL 200 MG TAB PO SCH ×2 (09:36→21:28)
[2018-02-15] MEDS: FUROSEMIDE 20 MG TAB PO SCH (09:36)
[2018-02-15] MEDS: PANTOPRAZOLE 40 MG/10 ML VIAL IV SCH ×2 (09:36→21:27)
[2018-02-15] MEDS: POTASSIUM CHL 10% (20 MEQ/15ML) 15ml ORAL SOLN GT SCH (09:36)
[2018-02-15 11:56] VITALS: BP 137/72
[2018-02-15] MEDS: VANCOMYCIN 1GM/250ML 250 ML IV SCH (12:23)
[2018-02-15 16:00] VITALS: BP 135/78
[2018-02-15 19:55] VITALS: BP 135/78
[2018-02-16] VITALS (7 sets, daily range): BP systolic 115–140; BP diastolic 59–86
[2018-02-16] MEDS: IPRATROPIUM BROM 0.5 MG/2.5ML INH SOL NEB SCH ×4 (00:22→18:52)
[2018-02-16] MEDS: ALBUTEROL SULF 2.5 MG/0.5ML(0.5%) NEB SOLN NEB SCH ×4 (00:22→18:53)
[2018-02-16] MEDS: FREE WATER GT SCH ×4 (05:44→18:09)
[2018-02-16] MEDS: PIPERACILLIN-TAZOB 3.375GM 100 ML IV SCH ×3 (05:44→22:00)
[2018-02-16] MEDS: PANTOPRAZOLE 40 MG/10 ML VIAL IV SCH ×2 (10:46→22:00)
[2018-02-16] MEDS: FLUCONAZOLE 200MG/100ML 100 ML IV SCH (10:46)
[2018-02-16] MEDS: FUROSEMIDE 20 MG TAB PO SCH (10:47)
[2018-02-16] MEDS: AMIODARONE HCL 200 MG TAB PO SCH ×2 (10:47→22:00)
[2018-02-16] MEDS: VALPROIC ACID 250 MG/5 ML ORAL SOLN GT SCH ×2 (10:47→22:00)
[2018-02-16] MEDS: POTASSIUM CHL 10% (20 MEQ/15ML) 15ml ORAL SOLN GT SCH (10:48)
[2018-02-16] MEDS: VANCOMYCIN 1GM/250ML 250 ML IV SCH (13:58)
[2018-02-17] MEDS ORDERED: IPRATROPIUM BROM 0.5 MG/2.5ML INH SOL ONE (00:24)
[2018-02-17] MEDS ORDERED: ALBUTEROL SULF 2.5 MG/0.5ML(0.5%) NEB SOLN ONE (00:24)
== END 2018-02-16 23:24 | DRG 870 ==
LOC: ER 14:39 → TELE 14:40 → ICU WEST 01-17 18:06 → DOU IN ICU 01-28 16:16
PROVIDERS: ADMIT Internal Medicine; ATTEND Internal Medicine
PROC: 5A1955Z Respiratory Ventilation, Greater than 96 Consecutive Hours (ICD-10-PCS; principal; 2018-01-16)
PROC: 0BH17EZ Insertion of Endotracheal Airway into Trachea, Via Natural or Artificial Opening (ICD-10-PCS; 2018-01-16)
PROC: 02HV33Z Insertion of Infusion Device into Superior Vena Cava, Percutaneous Approach (ICD-10-PCS; 2018-01-16)
PROC: 5A09457 Assistance with Respiratory Ventilation, 24-96 Consecutive Hours, Continuous Positive Airway Pressure (ICD-10-PCS; 2018-01-28)
PROC: 5A09357 Assistance with Respiratory Ventilation, Less than 24 Consecutive Hours, Continuous Positive Airway Pressure (ICD-10-PCS; 2018-02-10)
PROC: 30233N1 Transfusion of Nonautologous Red Blood Cells into Peripheral Vein, Percutaneous Approach (ICD-10-PCS; 2018-02-12)
PROC: 0DH63UZ Insertion of Feeding Device into Stomach, Percutaneous Approach (ICD-10-PCS; 2018-02-13)
PROC: 0DB68ZX Excision of Stomach, Via Natural or Artificial Opening Endoscopic, Diagnostic (ICD-10-PCS; 2018-02-13)
DX: A41.01 Sepsis due to Methicillin susceptible Staphylococcus aureus (principal); N17.0 Acute kidney failure with tubular necrosis; J96.00 Acute respiratory failure, unspecified whether with hypoxia or hypercapnia; R65.21 Severe sepsis with septic shock; J15.211 Pneumonia due to Methicillin susceptible Staphylococcus aureus; E44.0 Moderate protein-calorie malnutrition; D68.69 Other thrombophilia; G93.1 Anoxic brain damage, not elsewhere classified; G81.94 Hemiplegia, unspecified affecting left nondominant side; G93.41 Metabolic encephalopathy; I50.31 Acute diastolic (congestive) heart failure; E87.0 Hyperosmolality and hypernatremia; K59.00 Constipation, unspecified; F41.9 Anxiety disorder, unspecified; I49.9 Cardiac arrhythmia, unspecified; F99 Mental disorder, not otherwise specified; I16.0 Hypertensive urgency; D64.9 Anemia, unspecified; J44.9 Chronic obstructive pulmonary disease, unspecified; I73.9 Peripheral vascular disease, unspecified; I35.0 Nonrheumatic aortic (valve) stenosis; F20.9 Schizophrenia, unspecified; F31.9 Bipolar disorder, unspecified; I11.0 Hypertensive heart disease with heart failure; I48.91 Unspecified atrial fibrillation; K29.70 Gastritis, unspecified, without bleeding; Z95.0 Presence of cardiac pacemaker; Z88.8 Allergy status to other drugs, medicaments and biological substances; Z68.24 Body mass index [BMI] 24.0-24.9, adult; Z79.899 Other long term (current) drug therapy
CPT/HCPCS: 31500; 36415; 36556; 36600; 43239; 43246; 51702; 70450; 71045; 80048; 80053; 80164; 80202; 80320; 81001; 82140; 82805; 82962; 83605; 84443; 84484; 85007; 85025; 85027; 85610; 85730; 86703; 86706; 86803; 86850; 86900; 86901; 86920; 87040; 87070; 87077; 87081; 87086; 87186; 87205; 87340; 87804; 92610; 93005; 93306; 93926; 93971; 94002; 94003; 94640; 94660; 95819; 96361; 96374; 96375; 97110; 97163; 97530; 99291; C9113; J0330; J0690; J1450; J1956; J2250; J2543; J3490